=== PATIENT | female | born 1940 | race Caucasian/White ===

== ENCOUNTER 2020-01-11 15:08 | Outpatient (CLI) | payer MEDICARE, SELFPAY ==
--- NOTE | 2020-01-11 15:09 | MM_ITS ---
WS: [id number] LEFT DIGITAL MAMMOGRAPHY WITH CAD CLINICAL INFORMATION: HX OF BREAST CA HISTORY: Right mastectomy. COMPARISON: December 15, 2018 TECHNIQUE: 3 views of the left breast were obtained. FINDINGS: The left breast is composed of heterogeneous fibroglandular density tissue, which can limit the detec tion of small underlying mass lesions. Stable axillary tail lymph nodes. Lucent centered and punctate calcifications. No suspicious focal mass, asymmetry, calcifications, or architectural distortion. No evidence of arnol gnancy. MM/[place] [id number] IMPRESSION: BI-RADS: 2-Benign FOLLOW UP: 1 Year Follow-up Recommend return to annual diagnostic mammography.
[2020-01-11 15:39] LABS: Basophils % 0.3 %; Eosinophils # 0.2 10^3/uL (0.0-0.8); Eosinophils % 2.6 %; Hematocrit 42.9 % (37.0-47.0); Hemoglobin 13.8 g/dL (11.5-15.3); Lymphocytes # 2.3 10^3/uL (0.8-4.8); Lymphocytes % 37.2 %; Mean Corpuscular HGB Conc 32.2 g/dL (30.0-36.0); Mean Corpuscular Hemoglobin 30.3 pg (28.0-34.0); Mean Corpuscular Volume 94.1 fL (81-99); Mean Platelet Volume 10.6 fL (7.4-10.4); Monocytes # 0.4 10^3/uL (0.2-0.9); Monocytes % 7.1 %; Neutrophils # 3.2 10^3/uL (1.8-7.7); Neutrophils % 52.6 %; Nucleated Red Blood Cells % 0 %; Platelet Count 231 10^3/cmm (130-400); Red Blood Count 4.56 10^6/uL (4.1-5.3); Red Cell Distribution Width 12.2 % (12.1-15.1); White Blood Count 6.1 10^3/uL (4.0-10.0)
[2020-01-11 15:51] LABS: Alanine Aminotransferase 8 U/L (0-33); Albumin Level 3.8 g/dL (3.5-5.2); Alkaline Phosphatase 67 IU/L (35-105); Anion Gap 14.4 (5-19); Aspartate Amino Transferase 22 U/L (0-32); Blood Urea Nitrogen 13 mg/dL (8-23); Calcium 8.7 mg/dL (8.5-10.5); Carbon Dioxide 25 mmol/L (22-29); Chloride 102 mmol/L (98-107); Globulin 3.7 g/dL (1.3-4.6); Glucose 107 mg/dL (65-115); Osmolality Calculated 283 mOsm/kg (285-295); Potassium 3.4 mmol/L (3.5-5.1); Sodium 138 mmol/L (136-145); Total Bilirubin 0.5 mg/dL (0.15-1.2); Total Protein 7.5 g/dL (6.6-8.7)
[2020-01-11 19:13] LABS: Free T4 Free Thyroxine 1.11 ng/dL (0.82-1.77); Thyroid Stimulating Hormone 2.87 uIU/mL (0.27-4.20)
--- NOTE | 2020-01-13 09:22 | ONC FU_ITS ---
Dr. Lawson Patient Follow-Up Note Patient: MEE DENNIS Unit #: [id number]: 1940 Dicatated By: Parvez Lawson M.D.Date of Visit:Jan 11, 2020 Onc Med Follow-up/Prog Note Chief Complaint: Breast cancer. 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 The tumor was low-level ER positive and MA negative. It was positive for overexpression of HER-2/meghna (3+ by IHC). Her initial evaluation showed evidence of multifocal disease and she underwent total mastectomy with sentinel axillary lymph node biopsy in September of 2009. Pathology showed 2 areas of involvement, the larger in the upper outer quadrant measuring 2.8 cm in maximum diameter. A more medial lesion measured 1.3 cm. Two sentinel lymph nodes were negative. She was given adjuvant chemotherapy with 5 cycles of TCH, which she completed in January 2010. The chemotherapy was stopped at that point because of multiple toxicities. She continued Herceptin until September of 2010, at which point she had completed a full year of treatment. She started adjuvant with anastrozole in March of 2011. She stopped anastrozole in March 2016 after completing 5 years of treatment. Her general health has been excellent. She did have evidence of osteopenia on her baseline bone density, for which she has been on treatment with alendronate and calcium/vitamin D. She also has had some mild degenerative arthritis. She has no other medical illnesses. She is a nonsmoker. INTERIM HISTORY: At her scheduled follow-up visit in November 2018 her liver enzymes had become significantly elevated along with a mildly elevated total bilirubin level. Her energy was a little low and she was having a little nausea, but overall she was still feeling good. Her CT abdomen/pelvis on 12/31/2018 showed mild intrahepatic and extrahepatic bile duct dilatation, possibly related to prior cholecystectomy. There was no evidence of metastatic disease to the liver. Several low-attenuation lesions were noted within the spleen, metastatic disease not excluded. She had subsequently developed nausea/vomiting, and she was then referred to [facility] gastroenterology. I did not receive any records from them, but she apparently then underwent surgery for a common bile duct stone. She is seen for a followup visit. She says she is feeling great, but her indicates that she has had decline in her activity. She is doing some yard work and housework. ECOG score is 1. She has good appetite. Her weight is up about 5 lbs. She does not have fever, night sweats, or hot flashes. She has been having allergy related symptoms. She has no shortness of breath or cough. She has not been having chest pain or other cardiac symptoms. She has no GI or complaints. She says the pain in her right knee and leg is getting better. She has no other joint or bone pain. She does not have headache or focal neurologic symptoms. She does complain that she is very very dizzy. Her has noticed decline in her memory and cognitive function. Medications: Calcium + D 1 (600-200 mg - Units) Tablet Oral daily, Daily Multiple Vitamins 1 Tablet Oral daily, Levothyroxine Sodium 1 Tablet (of 25 mcg) Oral daily, Magnesium 1 (250 mg) Tablet Oral daily, Sertraline HCl 1 Tablet (of 25 mg) Oral at bedtime, Soothe XP 1 Drop(s) Solution Ophthalmic b.i.d., Xyzal 1 Tablet (of 5 mg) Oral daily Allergies: No Known Allergies. Review of Systems: Constitutional - She says she feels great, but her Romie that there has been decline in her activity. She is still doing yard work and housework. She has good appetite. Her weight is up 5 pounds. She does not have fever, night sweats, or hot flashes. ECOG score is 1, ENMT - She has been having allergy related symptoms including watery eyes and runny nose. She has sore throat. No mouth sores. No difficulty swallowing, Hematologic/Lymphatic - No abnormal bruising or bleeding, Respiratory - No shortness of breath. No cough. No pleuritic pain or hemoptysis, Cardiovascular - No angina pain. No palpitations, Gastrointestinal - No nausea or vomiting. No heartburn or acid reflux. No diarrhea or constipation. No blood in the stool or black stools, Genitourinary (F) - No dysuria or hematuria. No urinary frequency. No urgency or incontinence, Musculoskeletal - She has some pain in her right knee and leg, but she says it is getting better, Neurologic - No headache. She complains that she is very very dizzy. No numbness/paresthesias or other focal neurologic symptoms, Psychiatric - She has anxiety. No depression. No insomnia. Her has noticed changes in her memory and cognitive function. Vital Signs: Performed on Jan 11, 2020 16:19 Height - 65.50 in Weight - 190.6 lbs (HIGH) BSA - 1.95 sq.m BMI - 31.24 (HIGH) Temperature - 97.1 F (LOW) Pulse - 114 /min (HIGH) Respiration - 18 /min BP - 128/85 mm(hg) O2 Sat - 96 % Pain - 0 Physical Examination: Constitutional - She looks pretty good generally, Eyes - Sclerae nonicteric. Conjunctivae clear, ENMT - No lesions noted in the oral cavity, Hematologic/Lymphatic - No cervical or clavicular adenopathy, Respiratory - Lungs are clear with good air movement bilaterally, Cardiovascular - Heart rhythm is irregular with a mild tachycardia. There is a II/ systolic murmur. There is no gallop or rub noted, Breasts - There are no lesions noted in the right chest wall. The left breast shows no mass. There is no axillary adenopathy, Abdomen - Soft and non-tender. Liver and spleen are not enlarged. There is no abdominal mass or ascites noted and there is no inguinal adenopathy, Extremities - Mld lower extremity edema, worse on the right. She has good dorsalis pedis pulses bilaterally, Neurologic - There has been a noticeable decline in her cognitive function. There are no focal neurologic deficits noted. Lab/Imaging: Test performed on Jan 11, 2020 15:24 Sodium 138 mmol/L Potassium 3.4 mmol/L Chloride 102 mmol/L CO2 25 mmol/L Anion Gap 14.4 BUN 13 mg/dL Creatinine 0.8 mg/dL Cr Clearance (Est) 76.55 mL/min Glucose 107 mg/dL Calcium 8.7 mg/dL Protein, Total 7.5 g/dL Albumin 3.8 g/dL Globulin 3.7 g/dL Bilirubin, Total 0.5 mg/dL ALT (SGPT) 8 U/L AST (SGOT) 22 U/L Alkaline Phosphatase 67 IU/L WBC 6.1 10 3/uL RBC 4.56 10 6/uL HGB 13.8 g/dL HCT 42.9 % MCV 94.1 fL MCH 30.3 pg MCHC 32.2 g/dL RDW 12.2 % Platelet Count 231 10 3/cmm MPV 10.6 fL Neutrophils 3.2 10 3/uL Lymphocytes 2.3 10 3/uL Monocytes 0.4 10 3/uL Eosinophils 0.2 10 3/uL Basophils 0.0 10 3/uL Neutrophil % 52.6 % Lymphocyte % 37.2 % Monocyte % 7.1 % Eosinophil % 2.6 % Basophils % 0.3 % NRBC % 0 % Her EKG today shows atrial fibrillation with rapid ventricular response. Impression: 1. 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 2. She underwent right total mastectomy with sentinel axillary lymph node biopsy in September 2009. 3. She was given adjuvant chemotherapy with 5 cycles of TCH and a full year of Herceptin. 4. She was given adjuvant hormonal therapy with anastrozole 1 mg daily from March 2011 thru March 2016. Her other medical illnesses include: 5. Osteopenia. 6. Mild degenerative arthritis. She continued on observation/expectant management following completion of adjuvant hormonal therapy. As of her follow-up visit in November 2018 her liver enzymes had become significantly elevated along with a slightly elevated total bilirubin. Her CT evidence/pelvis showed no evidence of metastatic involvement in the liver. There was mild dilatation of intra-and extrahepatic bile ducts, and she apparently then underwent surgery for removal of a common bile duct stone. Her liver enzymes subsequently returned to normal. In January 2019 she underwent laparoscopic converted to open right femoral hernia repair with plug. Since her last visit there has been some decline in her performance status and in her memory/cognitive function. She also complains of dizziness. It appears likely that she is developing dementia. She also has developed atrial fibrillation with a mildly elevated ventricular rate. She does not appear to be symptomatic with it. Thus far there has been no evidence of recurrence of her breast cancer. Plan: She we will remain on observation/expectant management for the breast cancer. I will check thyroid studies today, but in the meantime she is advised to stop levothyroxine. She will start metoprolol 25 mg bid. She will continue sertraline but with the dose/schedule changed to 50 mg daily. I will see her again in one year. In the meantime, she wishes to establish primary care with Dr. Leo, and I try and arrange an appointment for her. Signed By: Parvez Lawson M.D. <<Signature on File>>
== END 2020-01-11 15:09 | disposition home or self-care (01) ==
LOC: RADSHAW 15:08
PROVIDERS: PCP Nurse Practitioner; Visit Provider Internal Medicine Medical Oncology
DX: Z08 Encounter for follow-up examination after completed treatment for malignant neoplasm (principal); Z85.3 Personal history of malignant neoplasm of breast; M19.90 Unspecified osteoarthritis, unspecified site; R41.3 Other amnesia; F09 Unspecified mental disorder due to known physiological condition; R42 Dizziness and giddiness; M85.80 Other specified disorders of bone density and structure, unspecified site; Z90.11 Acquired absence of right breast and nipple; Z92.23 Personal history of estrogen therapy; Z92.21 Personal history of antineoplastic chemotherapy
CPT/HCPCS: 77065; 80053; 84439; 84443; 85025; 99214

== ENCOUNTER 2021-01-14 08:50 | Outpatient (CLI) | payer MEDICARE, SELFPAY ==
[2021-01-14 10:06] LABS: Basophils % 0.4 %; Eosinophils # 0.2 10^3/uL (0.0-0.8); Eosinophils % 4.6 %; Hematocrit 43.2 % (37.0-47.0); Hemoglobin 13.5 g/dL (11.5-15.3); Lymphocytes # 1.2 10^3/uL (0.8-4.8); Lymphocytes % 25.9 %; Mean Corpuscular HGB Conc 31.3 g/dL (30.0-36.0); Mean Corpuscular Hemoglobin 30.6 pg (28.0-34.0); Mean Platelet Volume 11.1 fL (7.4-10.4); Monocytes # 0.4 10^3/uL (0.2-0.9); Monocytes % 9.3 %; Neutrophils # 2.68 10^3/uL (1.8-7.7); Neutrophils % 59.4 %; Nucleated Red Blood Cells % 0 %; Platelet Count 199 10^3/cmm (130-400); Red Blood Count 4.41 10^6/uL (4.1-5.3); White Blood Count 4.5 10^3/uL (4.0-10.0)
[2021-01-14 10:35] LABS: Ammonia 15 umol/L (11-51)
[2021-01-14 11:00] LABS: Alanine Aminotransferase 6 U/L (0-33); Albumin Level 3.4 g/dL (3.5-5.2); Alkaline Phosphatase 59 IU/L (35-105); Anion Gap 10.2 (5-19); Aspartate Amino Transferase 19 U/L (0-32); Blood Urea Nitrogen 21 mg/dL (8-23); Calcium 8.3 mg/dL (8.5-10.5); Carbon Dioxide 30 mmol/L (22-29); Chloride 107 mmol/L (98-107); Glucose 97 mg/dL (65-115); Osmolality Calculated 299 mOsm/kg (285-295); Potassium 4.2 mmol/L (3.5-5.1); Sodium 143 mmol/L (136-145); Thyroid Stimulating Hormone 2.76 uIU/mL (0.27-4.20); Total Bilirubin 0.3 mg/dL (0.15-1.2); Total Protein 6.4 g/dL (6.6-8.7); Vitamin B12 762 pg/mL (232-1245)
--- NOTE | 2021-01-21 10:44 | ONC FU_ITS ---
Dr. Lawson Patient Follow-Up Note Patient: Candace Liu Unit #: [id number]: [id number] Dicatated By: Parvez Lawson M.D.Date of Visit:Jan 14, 2021 Onc Med Follow-up/Prog Note Chief Complaint: Breast cancer. 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 The tumor was low-level ER positive and CO negative. It was positive for overexpression of HER-2/meghna (3+ by IHC). Her initial evaluation showed evidence of multifocal disease and she underwent total mastectomy with sentinel axillary lymph node biopsy in September of 2009. Pathology showed 2 areas of involvement, the larger in the upper outer quadrant measuring 2.8 cm in maximum diameter. A more medial lesion measured 1.3 cm. Two sentinel lymph nodes were negative. She was given adjuvant chemotherapy with 5 cycles of TCH, which she completed in January 2010. The chemotherapy was stopped at that point because of multiple toxicities. She continued Herceptin until September of 2010, at which point she had completed a full year of treatment. She started adjuvant with anastrozole in March of 2011. She stopped anastrozole in March 2016 after completing 5 years of treatment. At her scheduled follow-up visit in November 2018 her liver enzymes had become significantly elevated along with a mildly elevated total bilirubin level. Her energy was a little low and she was having a little nausea, but overall she was still feeling good. Her CT abdomen/pelvis on 12/31/2018 showed mild intrahepatic and extrahepatic bile duct dilatation, possibly related to prior cholecystectomy. There was no evidence of metastatic disease to the liver. Several low-attenuation lesions were noted within the spleen, metastatic disease not excluded. She had subsequently developed nausea/vomiting, and she was then referred to [facility] gastroenterology. I did not receive any records from them, but she apparently then underwent surgery for a common bile duct stone. Her general health had otherwise been excellent. She did have evidence of osteopenia on her baseline bone density, for which she began treatment with alendronate and calcium/vitamin D. She also has had some mild degenerative arthritis. She is a non-smoker. She is seen for a followup visit. During the past 1 to 2 years she has had a decline in her cognitive function. Her indicates that she actually has more problems now with intermittent confusion as opposed to memory loss. She is still able to do light work around the house. Her ECOG score is 1. Her appetite is not particularly good, but she is eating. Her weight is down about 3 pounds. She does not have fever or night sweats. She has no shortness of breath, cough, or chest pain. She has complained of nausea, though not as much lately. Bowel and bladder function have been okay. She sometimes has pain in her right knee. She has no other joint or bone pain. She does not complain of headache. She sometimes has dizziness. She has no numbness/paresthesia or other focal neurologic symptoms. Medications: Calcium + D 1 (600-200 mg - Units) Tablet Oral daily, Daily Multiple Vitamins 1 Tablet Oral daily, Levothyroxine Sodium 1 Tablet (of 25 mcg) Oral daily, Magnesium 1 (250 mg) Tablet Oral daily, Sertraline HCl 1 Tablet (of 25 mg) Oral at bedtime, Soothe XP 1 Drop(s) Solution Ophthalmic b.i.d., Xyzal 1 Tablet (of 5 mg) Oral daily Allergies: No Known Allergies. Vital Signs: Performed on Jan 14, 2021 09:57 Height - 65.50 in Weight - 187.4 lbs (LOW) BSA - 1.93 sq.m BMI - 30.71 (HIGH) Temperature - 97.0 F (LOW) Pulse - 76 /min Respiration - 18 /min BP - 120/68 mm(hg) O2 Sat - 97 % Pain - 0 Fatigue - 0 Physical Examination: Constitutional - She looks pretty good generally, Eyes - Sclerae nonicteric. Conjunctivae clear, ENMT - No lesions noted in the oral cavity, Hematologic/Lymphatic - No cervical or clavicular adenopathy, Respiratory - Lungs are clear with good air movement bilaterally, Cardiovascular - Heart rhythm is irregular. There is a II/ systolic murmur. There is no gallop or rub noted, Breasts - There are no lesions noted in the right chest wall. The left breast shows no mass. There is no axillary adenopathy, Abdomen - Soft. Liver and spleen are not enlarged. There is no abdominal mass or ascites noted and there is no inguinal adenopathy, Extremities - Mld edema, Neurologic - There are no focal neurologic deficits noted. Lab/Imaging: Test performed on Jan 14, 2021 09:51 Ammonia 15 umol/L Sodium 143 mmol/L TSH 2.76 uIU/mL Vitamin B12 762 pg/mL Potassium 4.2 mmol/L Chloride 107 mmol/L CO2 30 mmol/L Anion Gap 10.2 BUN 21 mg/dL Creatinine 0.9 mg/dL Cr Clearance (Est) 65.7900 mL/min Glucose 97 mg/dL Osmolality - Calculated 299 mOsm/kg Calcium 8.3 mg/dL Protein, Total 6.4 g/dL Albumin 3.4 g/dL Globulin 3.0 g/dL Bilirubin, Total 0.3 mg/dL ALT (SGPT) 6 U/L AST (SGOT) 19 U/L Alkaline Phosphatase 59 IU/L WBC 4.5 10 3/uL RBC 4.41 10 6/uL HGB 13.5 g/dL HCT 43.2 % MCV 98.0 fL MCH 30.6 pg MCHC 31.3 g/dL RDW 13.0 % Platelet Count 199 10 3/cmm MPV 11.1 fL Neutrophils 2.68 10 3/uL Lymphocytes 1.2 10 3/uL Monocytes 0.4 10 3/uL Eosinophils 0.2 10 3/uL Basophils 0.0 10 3/uL Neutrophil % 59.4 % Lymphocyte % 25.9 % Monocyte % 9.3 % Eosinophil % 4.6 % Basophils % 0.4 % NRBC % 0 % Problem List: 1. Grade 3 infiltrating ductal carcinoma the right breast, stage IIA, ER low-level positive and CO negative and HER-2/meghna positive. She underwent right total mastectomy with sentinel axillary lymph node biopsy in September 2009. 2. Atrial fibrillation. 3. Osteopenia. 4. Mild degenerative arthritis. 5. Iimpairment in cognitive function. Problems Addressed with this Encounter and Plan: 1. 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 She underwent right total mastectomy with sentinel axillary lymph node biopsy in September 2009. She was given adjuvant chemotherapy with 5 cycles of TCH and a full year of Herceptin. She was given adjuvant hormonal therapy with anastrozole 1 mg daily from March 2011 thru March 2016. She continued on observation/expectant management following completion of adjuvant hormonal therapy. As of her follow-up visit in November 2018 her liver enzymes had become significantly elevated along with a slightly elevated total bilirubin. Her CT evidence/pelvis showed no evidence of metastatic involvement in the liver. There was mild dilatation of intra-and extrahepatic bile ducts, and she apparently then underwent surgery for removal of a common bile duct stone. Her liver enzymes subsequently returned to normal. During the past 1 to 2 years there has been some decline in her cognitive function. Her overall clinical status is otherwise remained stable. Thus far during follow-up there has been no evidence of recurrence of the breast cancer. She will be scheduled for her unilateral left diagnostic surveillance mammogram, which is overdue. I will see her again in 6 months. 2. She has cognitive impairment with some associated anxiety and confusion. After discussion with her , I will try increasing sertraline to 75 mg daily. Signed By: Parvez Lawson M.D. <<Signature on File>>
== END 2021-01-14 08:51 | disposition home or self-care (01) ==
PROVIDERS: PCP Family Medicine; Visit Provider Internal Medicine Medical Oncology
DX: Z08 Encounter for follow-up examination after completed treatment for malignant neoplasm (principal); Z85.3 Personal history of malignant neoplasm of breast; I48.20 Chronic atrial fibrillation, unspecified; M85.80 Other specified disorders of bone density and structure, unspecified site; M19.90 Unspecified osteoarthritis, unspecified site; G31.84 Mild cognitive impairment of uncertain or unknown etiology; Z79.890 Hormone replacement therapy; Z79.899 Other long term (current) drug therapy; Z90.11 Acquired absence of right breast and nipple
CPT/HCPCS: 80053; 82140; 82607; 84443; 85025; 99214

== ENCOUNTER 2021-01-25 12:40 | Outpatient (CLI) | payer MEDICARE, SELFPAY ==
--- NOTE | 2021-01-25 12:50 | MM_ITS ---
WS: [id number] DIAGNOSTIC LEFT DIGITAL MAMMOGRAM WITH CAD HISTORY: HX OF BREAST Ca; rt MAST COMPARISON: 01/11/2020 and 12/15/2018 Technique: CC, MLO and ML views. Breast composition: The breasts are heterogeneously dense, which may obscure small masses. Calcifica tions and asymmetries are stable. No distortion. MM/[place] [id number] IMPRESSION: BI-RADS: 2-Benign FOLLOW UP: 1 Year Follow-up
== END 2021-01-25 12:41 | disposition home or self-care (01) ==
LOC: RADSHAW 12:47
PROVIDERS: PCP Family Medicine; Visit Provider Internal Medicine Medical Oncology
DX: Z85.3 Personal history of malignant neoplasm of breast (principal); Z90.11 Acquired absence of right breast and nipple
CPT/HCPCS: 77065

== ENCOUNTER 2021-03-18 20:10 | Emergency (ER) | payer MEDICARE, SELFPAY ==
--- NOTE | 2021-03-18 20:11 | ECG_ITS ---
[facility] Test Date: 2021-03-18 Pat Name: Candace Liu Department: Room: Gender: Female [employer] [place]: : 1940 Requested By: Chandni Mitchell Order Number: [id number] Wallace MD: Arnold Blackwood M.D. Measurements Intervals [place] Rate: 80 P: SC: QRS: -58 QRSD: 118 T: 31 QT: 376 QTc: 436 Interpretive Statements ATRIAL FIBRILLATION LEFT ANTERIOR FASCICULAR BLOCK [QRS AXIS <= -45, QR IN I, RS IN II] No previous ECG available for comparison Electronically Signed On 03-19-2021 17:09:22 CDT by Arnold Blackwood M.D. [id number]
[2021-03-18 20:59] VITALS: BP 148/72; PULSE 97; RESP 18; TEMP 36.7; O2SAT 97
[2021-03-18 23:17] LABS: Basophils % 0.2 %; Eosinophils # 0.1 10^3/uL (0.0-0.8); Eosinophils % 0.7 %; Hematocrit 47.7 % (37.0-47.0); Hemoglobin 14.1 g/dL (11.5-15.3); Lymphocytes # 1.3 10^3/uL (0.8-4.8); Mean Corpuscular HGB Conc 29.6 g/dL (30.0-36.0); Mean Corpuscular Hemoglobin 30.8 pg (28.0-34.0); Mean Corpuscular Volume 104.1 fl (81-99); Mean Platelet Volume 11.3 fL (7.4-10.4); Monocytes # 0.6 10^3/uL (0.2-0.9); Monocytes % 7.4 %; Neutrophils # 6.47 10^3/uL (1.8-7.7); Neutrophils % 76.5 %; Nucleated Red Blood Cells % 0 %; Platelet Count 186 10^3/cmm (130-400); Red Blood Count 4.58 10^6/uL (4.1-5.3); Red Cell Distribution Width 12.9 % (12.1-15.1); White Blood Count 8.5 10^3/uL (4.0-10.0)
[2021-03-18 23:34] LABS: Alanine Aminotransferase < 5 U/L (0-33); Albumin Level 3.5 g/dL (3.5-5.2); Alkaline Phosphatase 62 IU/L (35-105); Aspartate Amino Transferase 16 U/L (0-32); Blood Urea Nitrogen 15 mg/dL (8-23); Calcium 9.1 mg/dL (8.5-10.5); Carbon Dioxide 21 mmol/L (22-29); Chloride 105 mmol/L (98-107); Globulin 3.4 g/dL (1.3-4.6); Glucose 111 mg/dL (65-115); Osmolality Calculated 290 mOsm/kg (285-295); Sodium 139 mmol/L (136-145); Total Bilirubin 1.2 mg/dL (0.15-1.2); Total Protein 6.9 g/dL (6.6-8.7)
[2021-03-18 23:39] LABS: Acetaminophen < 5.0 ug/mL (10-30); Alcohol Level < 10 mg/dL (0-10); Salicylate < 0.3 mg/dL (3-10)
[2021-03-18 23:40] LABS: Anion Gap 16.3 (5-19); Potassium 3.3 mmol/L (3.5-5.1)
[2021-03-18 23:44] LABS: SARS Covid-2 Antigen Negative (Negative)
[2021-03-18 23:57] VITALS: BP 142/72; PULSE 87; RESP 16; O2SAT 96
[2021-03-19] VITALS: BP 142/88; PULSE 68; RESP 16; O2SAT 96
--- NOTE | 2021-03-19 00:26 | ED_ITS ---
Documented by User: Chandni Mitchell MD 03/19/21 00:31 HPI - Psych General: Chief Complaint: Psychiatric Symptoms Stated Complaint: 96 hour hold Time Seen by Provider: 03/18/21 22:37 Source: patient and police Mode of arrival: ambulatory Limitations: altered mental status History of Present Illness: HPI Narrative: 81-year-old female has a history of possible dementia that spent in by police and has been under 96-hour hold. States she has been wandering frequently and wanted to her nephew's house the other day. She also does not believe her who he is and believes that he is someone else and has made threats to kill him. Patient here is able to tell me her name but is disoriented to time. She has had no recent illnesses no fevers no headache no strokelike symptoms. Associated symptoms: Reports homicidal ideation; Deny depression Review of Systems Const: Denies: fever(s), chills, body aches or change in appetite Eyes: Denies: blurry vision or eye discomfort ENMT: Denies: throat pain or dental pain Card: Denies: chest pain Resp: Denies: dyspnea GI: Denies: abdominal pain, nausea, vomiting or diarrhea : Denies: dysuria Musc: Denies: neck pain or back pain Skin/Breast: Denies: rash Neuro: Denies: headache(s) Psych: Reports: homicidal ideation; Denies: depression Mikhail/Lymph: Denies: easy bruising All/Imm: Denies: urticaria Physical Exam Const: COMMON NORMALS: no acute distress and healthy appearing; negative for patient oriented x3 GENERAL APPEARANCE: anxious HENMT: COMMON NORMALS: normocephalic and atraumatic HEAD & SCALP: normocephalic and atraumatic Eye: COMMON NORMALS: Equal, round and reactive pupils present and EOMs intact bilaterally PUPIL: Yes Equal, round and reactive pupils present Neck/C-Spine: COMMON NORMALS: full ROM and supple Chest: COMMONS NORMALS: normal inspection of the chest and normal palpation of entire chest wall Resp: COMMON NORMALS: normal respiratory effort, No retractions, No use of accessory muscles and clear to auscultation bilaterally AUSCULTATION: clear to auscultation bilaterally Cardio: COMMON NORMALS: regular rate, regular rhythm and No murmurs present (Cardio) RATE: regular rate RHYTHM: regular rhythm GI: COMMON NORMALS: Normal to inspection, nondistended, normoactive bowel sounds present, Soft to palpation, non-tender and no masses PALPATION: Yes Soft to palpation Extremity: COMMON NORMALS: normal to inspection and full ROM Neuro: COMMON NORMALS: moves all extremities and no focal motor deficits; negative for patient oriented x3 Psych: COMMON NORMALS: mental status grossly normal, Normal thought process present and cooperative THOUGHT PROCESS: Normal thought process present Skin: COMMON NORMALS: no rashes or lesions noted and no wounds GENERAL SKIN EXAM: no rashes or lesions noted Course Vital Signs: Vital signs: Vital Signs Temperature 98.1 F 03/18/21 20:59 Pulse Rate 74 03/19/21 03:45 Respiratory Rate 16 03/19/21 03:48 Blood Pressure 164/80 03/19/21 03:45 Pulse Oximetry 96 03/19/21 03:45 MDM - Psych Lab Data: Labs: Lab Results 03/18/21 03/18/21 03/18/21 Range/Units 23:11 23:11 23:11 WBC 8.5 (4.0-10.0) 10^3/ uL RBC 4.58 (4.1-5.3) 10^6/u L Hgb 14.1 (11.5-15.3) g/dL Hct 47.7 H (37.0-47.0) % MCV 104.1 H (81-99) fl MCH 30.8 (28.0-34.0) pg MCHC 29.6 L (30.0-36.0) g/dL RDW 12.9 (12.1-15.1) % Plt Count 186 (130-400) 10^3/c mm MPV 11.3 H (7.4-10.4) fL Neut % (Auto) 76.5 % Lymph % (Auto) 15.0 % [place] % (Auto) 7.4 % Eos % (Auto) 0.7 % Baso % (Auto) 0.2 % Neut # (Auto) 6.47 (1.8-7.7) 10^3/u L Lymph # (Auto) 1.3 (0.8-4.8) 10^3/u L [place] # (Auto) 0.6 (0.2-0.9) 10^3/u L Eos # (Auto) 0.1 (0.0-0.8) 10^3/u L Baso # (Auto) 0.0 (0.0-0.1) 10^3/u L Nucleated RBC % (a uto) 0 % Nucleated RBCs # 0.0 /100WBC Sodium 139 (136-145) mmol/L Potassium 3.3 L (3.5-5.1) mmol/L Chloride 105 (98-107) mmol/L Carbon Dioxide 21 L (22-29) mmol/L Anion Gap 16.3 (5-19) BUN 15 (8-23) mg/dL Creatinine 0.9 (0.5-0.9) mg/dL GFR Calculation Not Reportable Glucose 111 (65-115) mg/dL Calculated Osmolal ity 290 (285-295) mOsm/k g Calcium 9.1 (8.5-10.5) mg/dL Total Bilirubin 1.2 (0.15-1.2) mg/dL AST 16 (0-32) U/L ALT < 5 (0-33) U/L Alkaline Phosphata se 62 (35-105) IU/L Total Protein 6.9 (6.6-8.7) g/dL Albumin 3.5 (3.5-5.2) g/dL Globulin 3.4 (1.3-4.6) g/dL Urine Color (Yellow) Urine Appearance (CLEAR) Urine pH (5-7) Ur Specific Gravit y (1.005-1.030) Urine Protein (Negative) Urine Glucose (UA) (Normal) Urine Ketones (Negative) Urine Blood (Negative) Urine Nitrate (Negative) Urine Bilirubin (Negative) Urine Urobilinogen (Negative) mg/dL Ur Leukocyte Arely ase (Negative) Urine RBC (0-2) /hpf Urine WBC (0-5) /hpf Ur Squamous Epith Cells (0-5) /hpf Amorphous Sediment Urine Bacteria (NONE) /hpf Hyaline Casts /lpf Urine Mucus /hpf Salicylates < 0.3 L (3-10) mg/dL Urine Opiates Scre en (Negative) ng/mL Acetaminophen < 5.0 L (10-30) ug/mL Ur Barbiturates Sc reen (Negative) ng/mL Ur Phencyclidine S crn (Negative) ng/mL Ur Amphetamines Sc reen (Negative) ng/mL U Benzodiazepines Scrn (Negative) ng/mL Urine Cocaine Scre en (Negative) ng/mL U Marijuana (THC) Screen (Negative) ng/mL Ethyl Alcohol < 10 (0-10) mg/dL SARS-CoV-2 Ag (Rap id) Negative (Negative) 03/19/21 03/19/21 Range/Units 04:30 04:30 WBC (4.0-10.0) 10^3/ uL RBC (4.1-5.3) 10^6/u L Hgb (11.5-15.3) g/dL Hct (37.0-47.0) % MCV (81-99) fl MCH (28.0-34.0) pg MCHC (30.0-36.0) g/dL RDW (12.1-15.1) % Plt Count (130-400) 10^3/c mm MPV (7.4-10.4) fL Neut % (Auto) % Lymph % (Auto) % [place] % (Auto) % Eos % (Auto) % Baso % (Auto) % Neut # (Auto) (1.8-7.7) 10^3/u L Lymph # (Auto) (0.8-4.8) 10^3/u L [place] # (Auto) (0.2-0.9) 10^3/u L Eos # (Auto) (0.0-0.8) 10^3/u L Baso # (Auto) (0.0-0.1) 10^3/u L Nucleated RBC % (a uto) % Nucleated RBCs # /100WBC Sodium (136-145) mmol/L Potassium (3.5-5.1) mmol/L Chloride (98-107) mmol/L Carbon Dioxide (22-29) mmol/L Anion Gap (5-19) BUN (8-23) mg/dL Creatinine (0.5-0.9) mg/dL GFR Calculation Glucose (65-115) mg/dL Calculated Osmolal ity (285-295) mOsm/k g Calcium (8.5-10.5) mg/dL Total Bilirubin (0.15-1.2) mg/dL AST (0-32) U/L ALT (0-33) U/L Alkaline Phosphata se (35-105) IU/L Total Protein (6.6-8.7) g/dL Albumin (3.5-5.2) g/dL Globulin (1.3-4.6) g/dL Urine Color Crystal (Yellow) Urine Appearance Sl hazy (CLEAR) Urine pH 5 (5-7) Ur Specific Gravit y 1.025 (1.005-1.030) Urine Protein Trace (Negative) Urine Glucose (UA) Norm (Normal) Urine Ketones 1+ H (Negative) Urine Blood Neg (Negative) Urine Nitrate Negative (Negative) Urine Bilirubin 1+ H (Negative) Urine Urobilinogen 4 H (Negative) mg/dL Ur Leukocyte Arely ase Trace H (Negative) Urine RBC 5-10 H (0-2) /hpf Urine WBC 5-10 H (0-5) /hpf Ur Squamous Epith Cells 10-15 H (0-5) /hpf Amorphous Sediment Not Reportable Urine Bacteria 1+ H (NONE) /hpf Hyaline Casts 0-4 H /lpf Urine Mucus 1+ /hpf Salicylates (3-10) mg/dL Urine Opiates Scre en Negative (Negative) ng/mL Acetaminophen (10-30) ug/mL Ur Barbiturates Sc reen Negative (Negative) ng/mL Ur Phencyclidine S crn Negative (Negative) ng/mL Ur Amphetamines Sc reen Negative (Negative) ng/mL U Benzodiazepines Scrn Negative (Negative) ng/mL Urine Cocaine Scre en Negative (Negative) ng/mL U Marijuana (THC) Screen Negative (Negative) ng/mL Ethyl Alcohol (0-10) mg/dL SARS-CoV-2 Ag (Rap id) (Negative) EKG Data^: EKG 1: Attestation: I personally reviewed and interpreted this EKG as follows: EKG interpretation date: 03/18/21 EKG interpretation time: 23:59 Interpretation: afib hr [address] or t wave abnormalities qrs 118 qtc 413 Discharge Plan Discharge Patient Disposition: Xfer Short-Term Hosp Clinical Impression: Acute psychosis Condition: Stable Referrals: Jeovanny Leo DO [Primary Care Provider] - Sign Out Sign Out Data: Patient Sign Out occurred on 03/19/21 at 06:12. Patient's care was discussed, and care was transferred from to Zeus L Horstman, DO. Coding Level of Care Code ED Outpatient Phlebotomist for Chg Fwd Exam Comprehensive Documented by User: Zeus Madden DO 03/19/21 11:50 HPI - Psych General: Chief Complaint: Psychiatric Symptoms Stated Complaint: 96 hour hold Time Seen by Provider: 03/18/21 22:37 Course Vital Signs: Vital signs: Vital Signs Temperature 98.1 F 03/18/21 20:59 Pulse Rate 74 03/19/21 03:45 Respiratory Rate 16 03/19/21 03:48 Blood Pressure 164/80 03/19/21 03:45 Pulse Oximetry 96 03/19/21 03:45 MDM - Psych MDM Narrative: Medical decision making narrative: Assumed a change of shift. We are making her inquiries to find bed placement for geriatric psych since she did not have that service available at our hospital. Cussed with nurse practitioner at [place]. Dr. Linton will accept on transfer transportation arrangements being finalized. Lab Data: Labs: Lab Results 03/18/21 03/18/21 03/18/21 Range/Units 23:11 23:11 23:11 WBC 8.5 (4.0-10.0) 10^3/ uL RBC 4.58 (4.1-5.3) 10^6/u L Hgb 14.1 (11.5-15.3) g/dL Hct 47.7 H (37.0-47.0) % MCV 104.1 H (81-99) fl MCH 30.8 (28.0-34.0) pg MCHC 29.6 L (30.0-36.0) g/dL RDW 12.9 (12.1-15.1) % Plt Count 186 (130-400) 10^3/c mm MPV 11.3 H (7.4-10.4) fL Neut % (Auto) 76.5 % Lymph % (Auto) 15.0 % [place] % (Auto) 7.4 % Eos % (Auto) 0.7 % Baso % (Auto) 0.2 % Neut # (Auto) 6.47 (1.8-7.7) 10^3/u L Lymph # (Auto) 1.3 (0.8-4.8) 10^3/u L [place] # (Auto) 0.6 (0.2-0.9) 10^3/u L Eos # (Auto) 0.1 (0.0-0.8) 10^3/u L Baso # (Auto) 0.0 (0.0-0.1) 10^3/u L Nucleated RBC % (a uto) 0 % Nucleated RBCs # 0.0 /100WBC Sodium 139 (136-145) mmol/L Potassium 3.3 L (3.5-5.1) mmol/L Chloride 105 (98-107) mmol/L Carbon Dioxide 21 L (22-29) mmol/L Anion Gap 16.3 (5-19) BUN 15 (8-23) mg/dL Creatinine 0.9 (0.5-0.9) mg/dL GFR Calculation Not Reportable Glucose 111 (65-115) mg/dL Calculated Osmolal ity 290 (285-295) mOsm/k g Calcium 9.1 (8.5-10.5) mg/dL Total Bilirubin 1.2 (0.15-1.2) mg/dL AST 16 (0-32) U/L ALT < 5 (0-33) U/L Alkaline Phosphata se 62 (35-105) IU/L Total Protein 6.9 (6.6-8.7) g/dL Albumin 3.5 (3.5-5.2) g/dL Globulin 3.4 (1.3-4.6) g/dL Urine Color (Yellow) Urine Appearance (CLEAR) Urine pH (5-7) Ur Specific Gravit y (1.005-1.030) Urine Protein (Negative) Urine Glucose (UA) (Normal) Urine Ketones (Negative) Urine Blood (Negative) Urine Nitrate (Negative) Urine Bilirubin (Negative) Urine Urobilinogen (Negative) mg/dL Ur Leukocyte Arely ase (Negative) Urine RBC (0-2) /hpf Urine WBC (0-5) /hpf Ur Squamous Epith Cells (0-5) /hpf Amorphous Sediment Urine Bacteria (NONE) /hpf Hyaline Casts /lpf Urine Mucus /hpf Salicylates < 0.3 L (3-10) mg/dL Urine Opiates Scre en (Negative) ng/mL Acetaminophen < 5.0 L (10-30) ug/mL Ur Barbiturates Sc reen (Negative) ng/mL Ur Phencyclidine S crn (Negative) ng/mL Ur Amphetamines Sc reen (Negative) ng/mL U Benzodiazepines Scrn (Negative) ng/mL Urine Cocaine Scre en (Negative) ng/mL U Marijuana (THC) Screen (Negative) ng/mL Ethyl Alcohol < 10 (0-10) mg/dL SARS-CoV-2 Ag (Rap id) Negative (Negative) 03/19/21 03/19/21 Range/Units 04:30 04:30 WBC (4.0-10.0) 10^3/ uL RBC (4.1-5.3) 10^6/u L Hgb (11.5-15.3) g/dL Hct (37.0-47.0) % MCV (81-99) fl MCH (28.0-34.0) pg MCHC (30.0-36.0) g/dL RDW (12.1-15.1) % Plt Count (130-400) 10^3/c mm MPV (7.4-10.4) fL Neut % (Auto) % Lymph % (Auto) % [place] % (Auto) % Eos % (Auto) % Baso % (Auto) % Neut # (Auto) (1.8-7.7) 10^3/u L Lymph # (Auto) (0.8-4.8) 10^3/u L [place] # (Auto) (0.2-0.9) 10^3/u L Eos # (Auto) (0.0-0.8) 10^3/u L Baso # (Auto) (0.0-0.1) 10^3/u L Nucleated RBC % (a uto) % Nucleated RBCs # /100WBC Sodium (136-145) mmol/L Potassium (3.5-5.1) mmol/L Chloride (98-107) mmol/L Carbon Dioxide (22-29) mmol/L Anion Gap (5-19) BUN (8-23) mg/dL Creatinine (0.5-0.9) mg/dL GFR Calculation Glucose (65-115) mg/dL Calculated Osmolal ity (285-295) mOsm/k g Calcium (8.5-10.5) mg/dL Total Bilirubin (0.15-1.2) mg/dL AST (0-32) U/L ALT (0-33) U/L Alkaline Phosphata se (35-105) IU/L Total Protein (6.6-8.7) g/dL Albumin (3.5-5.2) g/dL Globulin (1.3-4.6) g/dL Urine Color Crystal (Yellow) Urine Appearance Sl hazy (CLEAR) Urine pH 5 (5-7) Ur Specific Gravit y 1.025 (1.005-1.030) Urine Protein Trace (Negative) Urine Glucose (UA) Norm (Normal) Urine Ketones 1+ H (Negative) Urine Blood Neg (Negative) Urine Nitrate Negative (Negative) Urine Bilirubin 1+ H (Negative) Urine Urobilinogen 4 H (Negative) mg/dL Ur Leukocyte Arely ase Trace H (Negative) Urine RBC 5-10 H (0-2) /hpf Urine WBC 5-10 H (0-5) /hpf Ur Squamous Epith Cells 10-15 H (0-5) /hpf Amorphous Sediment Not Reportable Urine Bacteria 1+ H (NONE) /hpf Hyaline Casts 0-4 H /lpf Urine Mucus 1+ /hpf Salicylates (3-10) mg/dL Urine Opiates Scre en Negative (Negative) ng/mL Acetaminophen (10-30) ug/mL Ur Barbiturates Sc reen Negative (Negative) ng/mL Ur Phencyclidine S crn Negative (Negative) ng/mL Ur Amphetamines Sc reen Negative (Negative) ng/mL U Benzodiazepines Scrn Negative (Negative) ng/mL Urine Cocaine Scre en Negative (Negative) ng/mL U Marijuana (THC) Screen Negative (Negative) ng/mL Ethyl Alcohol (0-10) mg/dL SARS-CoV-2 Ag (Rap id) (Negative) Discharge Plan Discharge Patient Disposition: Xfer Short-Term Hosp Clinical Impression: Acute psychosis Condition: Stable Referrals: Jeovanny Leo DO [Primary Care Provider] - Sign Out Sign Out Data: Patient Sign Out occurred on 03/19/21 at 06:12. Patient's care was discussed, and care was transferred from to Zeus Madden DO. Coding Level of Care Code ED Outpatient Phlebotomist for Chg Fwd Exam Comprehensive
--- NOTE | 2021-03-19 00:47 | XRR_ITS ---
PROCEDURE INFORMATION: Exam: XR Chest Exam date and time: 03/19/2021 12:47 AM Age: 81 years old Clinical indication: Other: Medical clearance TECHNIQUE: Imaging protocol: XR of the chest. Views: 1 view. COMPARISON: CT abdomen pelvis w con* [id number] 12/31/2018 9:45 AM FINDINGS: Lungs: Streaky opacity in the right mid lung which could be secondary to atelectasis or pneumonia. Pleural spaces: Unremarkable. No pleural effusion. No pneumothorax. Heart/Mediastinum: There is mild cardiomegaly. Bones/joints: Unremarkable. XR/XR chest 1V portable [id number] IMPRESSION: 1. Mild cardiomegaly. 2. Streaky opacity in the right mid lung which could be secondary to atelectasis or pneumonia.
[2021-03-19 02:00] VITALS: BP 168/64; PULSE 72; RESP 16; O2SAT 96
[2021-03-19 03:45] VITALS: BP 164/80; PULSE 74; RESP 18; O2SAT 96
[2021-03-19 03:48] VITALS: RESP 16
--- NOTE | 2021-03-19 03:48 | PC.NURSE ---
pt refuses all vitals. Demetrio PSA present while this nurse tried multiple times to obtain vital signs.
[2021-03-19] MEDS: LORazepam 2 mg/mL INJ 1 mL 1 MG IM (04:30)
[2021-03-19 05:02] LABS: Add Urine Microscopic? YES; Bilirubin Urine 1+ (Negative); Blood Urine Neg (Negative); Glucose Urine UA Norm (Normal); Ketones Urine 1+ (Negative); Leukocyte Esterase Urine Trace (Negative); Nitrate Urine Negative (Negative); Protein Urine Trace (Negative); Specific Gravity, Urine 1.025 (1.005-1.030); Urine Appearance SL Hazy (CLEAR); Urine Color Amber (Yellow); Urobilinogen Urine 4 mg/dL (Negative); pH Urine 5 (5-7)
[2021-03-19 05:03] LABS: Add Urine Culture? No; Bacteria Urine 1+ /hpf; Hyaline Casts Urine 0-4 /lpf; Mucus Urine 1+ /hpf
[2021-03-19 05:04] LABS: Amphetamines Screen Urine Negative (Negative); Barbiturates Screen Urine Negative (Negative); Benzodiazepines Screen Urine Negative (Negative); Cocaine Screen Urine Negative (Negative); Opiate Screen Urine Negative (Negative); PCP Screen Urine Negative (Negative); THC Screen Urine Negative (Negative)
--- NOTE | 2021-03-19 09:02 | PC.NURSE ---
Packet faxed to [facility] in [place], [place].
--- NOTE | 2021-03-19 09:14 | PC.NURSE ---
Packet sent to [facility] in [place].
--- NOTE | 2021-03-19 09:18 | PC.NURSE ---
Continues to refuse vitals at this time. Will attempt again later.
[2021-03-19 12:23] VITALS: BP 138/74; PULSE 81; RESP 18; O2SAT 99
== END 2021-03-19 13:07 | disposition short-term general hospital (02) ==
PROVIDERS: Emergency Medicine; Emergency Provider Family Medicine; PCP Family Medicine
DX: F23 Brief psychotic disorder (principal)
CPT/HCPCS: 71045; 80053; 80306; 80307; 81001; 85025; 87426; 93005; 96372; 99285; J2060

== ENCOUNTER 2021-04-11 15:23 | Emergency (ER) | payer MEDICARE, SELFPAY ==
[2021-04-11 15:27] VITALS: BP 143/106; PULSE 72; RESP 15; TEMP 36.7; O2SAT 96; BMI 19.6
--- NOTE | 2021-04-11 15:38 | CT_ITS ---
WS: [id number] CT CERVICAL SPINE HISTORY: fall age >65 TECHNIQUE: Contiguous 2.5 mm axial imaging performed through the entire cervical spine. Sagittal and coronal reformats also performed. All CT scans at [facility] use at least one of these dose o ptimization techniques: automated exposure control; mA and/or kV adjustment per patient size (include s targeted exams where dose is matched to clinical indication); or iterative reconstruction. DLP: 477.98 mGy.cm COMPARISON: None available. Straightening of the normal cervical lordosis. Roth cervical junction is normal. Lateral masses of C1 and C2 are aligned. The odontoid is intact. Mild disc space narrowing at C5-6. No cervical spine fractures are identified. No high-grade central or foraminal stenosis. No inferior displacement of cerebellar tonsils. Visualized lung apices are clear. CT/CT cervical spin wo con* [id number] IMPRESSION: 1. No acute cervical spine fracture. 2. No high-grade central or foraminal stenosis. 3. Mild facet joint arthritis and disc disease throughout the cervical spine.
--- NOTE | 2021-04-11 15:38 | CT_ITS ---
WS: [id number] CT HEAD NONCONTRAST HISTORY: fall >64 yo TECHNIQUE: Contiguous axial imaging performed through the brain in 2.5 mm imaging. Bone and soft tiss ue windows. Sagittal and coronal reformats reviewed. All CT scans at [facility] use at least one of these dose optimization techniques: automated exposure control; mA and/or kV adjustment per pa tient size (includes targeted exams where dose is matched to clinical indication); or iterative recon struction. DLP: 1552.25 mGy.cm COMPARISON: None available. There is a large mixed subdural hematoma centered over the RIGHT cerebrum. Hematoma extends from the vertex inferiorly over the temporal frontal lobe. Maximum diameter is 3.0 cm and extends over a lengt h of 10.5 cm. There is significant mass effect upon the RIGHT frontal lobe. This is predominantly of decreased density but there are a few areas of increased density also. Mild midline shift by 9 mm. Temporal lobes are not dilated. No intraventricular blood. Otherwise mil d chronic ischemic disease and mild atrophy. Ventricles: No hydrocephalus. Paranasal sinuses: Mucoperiosteal thickening and small air-fluid levels in the maxillary sinuses. Mastoid air cells: Well pneumatized. Calvarium and scalp: There is significant motion artifact. Highly suspicious for nondisplaced fractur e involving the posterior RIGHT frontal bone. CT/CT head wo con* [id number] IMPRESSION: 1. Large RIGHT subdural hematoma with mixed blood products. Favor this is a ch ronic on acute subdural. 2. 8 mm of midline shift to the LEFT. 3. Suspicious but indeterminate for fracture involving the RIGHT frontal bone. Study limited by motion. Notified Nicolas Iqbal MD at 04/11/2021 4:05 PM.
--- NOTE | 2021-04-11 15:38 | XR_ITS ---
WS: [id number] BILATERAL RIBS, MULTIPLE VIEWS WITH PA CHEST HISTORY: fall COMPARISON: 03/19/2021 Lungs and mediastinum: Lungs are hyperexpanded. No pneumothorax or pulmonary contusion. Ribs: No rib fractures or bone destruction identified. Bones are diffusely osteopenic. XR/XR ribs BI mn 4V w CXR1V [id number] IMPRESSION: No rib fractures or pneumothorax is identified.
[2021-04-11 16:40] VITALS: BP 108/88; PULSE 75; RESP 14; O2SAT 94
--- NOTE | 2021-04-11 16:43 | ED_ITS ---
HPI - Fall General: Chief Complaint: Fall Stated Complaint: FALL, CONFUSED Time Seen by Provider: 04/11/21 15:28 History of Present Illness: HPI Narrative: Patient is a 81-year-old female with a history of dementia. She was brought here by EMS after a fall this morning in her bedroom. It is not witnessed her who is also elderly and somewhat frail was unable to get her up into bed so when daughter called to check on them she had EMS bring her here for further evaluation. Patient is demented and unable to give any history is not aware that she is here but did not does not complain of any pain. Think that she is here to have her stomach looked at I spoke to daughter who said that she is declined mentally her Alzheimer's gotten worse over the last several weeks to months and is been try to place her in a group home. 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 Daughter also states that she is on a blood thinner but she does not know what kind Patient unable to give review of symptoms due to dementia Review of Systems General: Reports: ROS unobtainable due to mental status Physical Exam Const: COMMON NORMALS: no acute distress, patient oriented x3, alert and well nourished EXAM LIMITATIONS: behavioral limitations; no altered mental status GENERAL APPEARANCE: cooperative, comfortable, well kempt and well developed; not in distress, not anxious, not combative, not disheveled, not lethargic and not frail appearing ORIENTATION/CONSCIOUSNESS: Yes awake, Yes oriented to person and Yes oriented to place; not oriented to time, not confused, not patient obtunded and not lethargic HENMT: COMMON NORMALS: normocephalic, atraumatic and hearing grossly normal bilaterally HEAD & SCALP: normocephalic and atraumatic FACE & SINUS: normal facial exam Eye: COMMON NORMALS: Equal, round and reactive pupils present and EOMs intact bilaterally PUPIL: Yes Equal, round and reactive pupils present Neck/C-Spine: COMMON NORMALS: full ROM CERVICAL SPINE: No pain with cervical ROM, No Cervical spine tenderness, No step off deformity, No Paracervical muscle tenderness, No Paracervical spasm and No collar present Chest: COMMONS NORMALS: normal inspection of the chest and normal palpation of entire chest wall CHEST: No abnormal inspection of the chest, No Symmetrical chest wall rise and No localized rib tenderness with anteroposterior compression Resp: COMMON NORMALS: normal respiratory effort, No use of accessory muscles and clear to auscultation bilaterally AUSCULTATION: clear to auscultation bilaterally Cardio: COMMON NORMALS: regular rate, regular rhythm and No murmurs present (Cardio) RATE: regular rate RHYTHM: regular rhythm Extremity: COMMON NORMALS: normal to inspection, full ROM and capillary refill normal NARRATIVE EXTREMITY EXAM: No tenderness palpation all 4 limbs clavicles anterior posterior ribs. Signs of any apparent injury dislocation Neuro: AMAN COMA SCALE: document GCS findings Herman coma scale eye opening: Spontaneous Aman coma scale verbal response: Orientated Herman coma scale motor response: Obey commands Herman coma scale total score: 15 COMMON NORMALS: patient oriented x3, CN's II-XII intact bilaterally, moves all extremities, no focal motor deficits and no sensory deficits noted SENSORIUM/ORIENTATION: Yes alert, Yes oriented to person, Yes oriented to place, No oriented to time and No lethargic Psych: COMMON NORMALS: mental status grossly normal, cooperative, normal affect and speech normal APPEARANCE: Yes well kempt SPEECH: Yes normal speech Skin: COMMON NORMALS: no rashes or lesions noted and no wounds GENERAL SKIN EXAM: no rashes or lesions noted Course ED course: Patient's CT of the head showed a 3 cm maximum acute on subacute subdural hematoma. There does appear to be some fresh blood. There is an 8 mm left shift. C-spine did not show any acute findings. She does have some facet arthropathy and arthritis. Spoke to daughter who requested her to be sent to [facility]. Dr. Scott at the emergency department graciously agreed to accept. Spoke to daughter again after acceptance and it was discovered the patient is on an unknown anticoagulant and is unclear whether the patient is taking it or not. Discussed this with the accepting provider we agreed to wait for a INR. Expected provider also requested leave her in a c-collar and they would MRI her spine at receiving hospital Patient remains neurologically intact was able to I discussed with her transfer. She is little bit nervous about this but understands the need. Vital Signs: Vital signs: Vital Signs Temperature 98.1 F 04/11/21 15:27 Pulse Rate 75 04/11/21 16:40 Respiratory Rate 14 04/11/21 16:40 Blood Pressure 108/88 04/11/21 16:40 Pulse Oximetry 94 09/16/21 16:40 MDM - Fall MDM Narrative: Medical decision making narrative: Patient is a 81-year-old female with dementia here with fall Intracranial bleeding, C-spine injury, rhabdomyolysis, pharyngeal Discharge Plan Discharge Patient Disposition: Transfer to ED Clinical Impression: Subdural hematoma Condition: Stable Prescriptions: No Action Unable to Assess RF: 0 Referrals: Jeovanny Leo DO [Primary Care Provider] - Coding Level of Care Code ED Quality Assurance Representative for Marquita Stern
[2021-04-11 16:47] LABS: Basophils % 0.3 %; Eosinophils # 0.2 10^3/uL (0.0-0.8); Eosinophils % 1.8 %; Hematocrit 46.4 % (37.0-47.0); Hemoglobin 15.1 g/dL (11.5-15.3); Lymphocytes % 9.2 %; Mean Corpuscular HGB Conc 32.5 g/dL (30.0-36.0); Mean Corpuscular Volume 95.3 fl (81-99); Mean Platelet Volume 11.5 fL (7.4-10.4); Monocytes % 9.1 %; Neutrophils # 8.83 10^3/uL (1.8-7.7); Neutrophils % 79.2 %; Nucleated Red Blood Cells % 0 %; Platelet Count 146 10^3/cmm (130-400); Red Blood Count 4.87 10^6/uL (4.1-5.3); Red Cell Distribution Width 12.5 % (12.1-15.1); White Blood Count 11.1 10^3/uL (4.0-10.0)
[2021-04-11 17:06] VITALS: BP 110/85; PULSE 75; RESP 14; O2SAT 94
[2021-04-11 17:08] LABS: INR 1.12 (0.8-1.2)
[2021-04-11 17:09] LABS: Partial Thromboplastin Time 32.4 SECONDS (23.9-36.7)
[2021-04-11 17:34] LABS: Alanine Aminotransferase 9 U/L (0-33); Albumin Level 3.5 g/dL (3.5-5.2); Alkaline Phosphatase 89 IU/L (35-105); Anion Gap 15.6 (5-19); Aspartate Amino Transferase 27 U/L (0-32); Blood Urea Nitrogen 14 mg/dL (8-23); Calcium 8.8 mg/dL (8.5-10.5); Carbon Dioxide 26 mmol/L (22-29); Chloride 103 mmol/L (98-107); Creatine Phosphokinase 243 U/L (26-192); Globulin 3.6 g/dL (1.3-4.6); Glucose 104 mg/dL (65-115); Osmolality Calculated 293 mOsm/kg (285-295); Potassium 3.6 mmol/L (3.5-5.1); Sodium 141 mmol/L (136-145); Total Protein 7.1 g/dL (6.6-8.7)
[2021-04-11 18:07] LABS: CKMB 4.7 ng/mL (0-5.34)
--- NOTE | 2021-04-12 10:03 | DCPLANNER ---
Patient was transferred, unable to make contact at this time.
== END 2021-04-11 17:10 ==
PROVIDERS: Emergency Provider Family Medicine; PCP Family Medicine
DX: S06.5X9A Traumatic subdural hemorrhage with loss of consciousness of unspecified duration, initial encounter (principal); W06.XXXA Fall from bed, initial encounter
CPT/HCPCS: 70450; 71111; 72125; 80053; 82550; 82553; 85025; 85610; 85730; 99285

== ENCOUNTER → 2021-06-17 14:24 | Outpatient (BNVA) | payer MEDICARE, MEDICAID, SELFPAY | PROVIDERS: PCP Family Medicine; Visit Provider Specialist | DX: G30.9 Alzheimer's disease, unspecified (principal); F02.80 Dementia in other diseases classified elsewhere, unspecified severity, without behavioral disturbance, psychotic disturbance, mood disturbance, and anxiety; I69.218 Other symptoms and signs involving cognitive functions following other nontraumatic intracranial hemorrhage; F01.50 Vascular dementia, unspecified severity, without behavioral disturbance, psychotic disturbance, mood disturbance, and anxiety | CPT/HCPCS: 99204 ==

== ENCOUNTER 2021-11-04 14:09 | Emergency (ER) | payer MEDICARE, MEDICAID, SELFPAY ==
[2021-11-04 14:16] VITALS: BP 96/58; PULSE 64; RESP 17; TEMP 36.6; O2SAT 96; BMI 25.7
--- NOTE | 2021-11-04 14:18 | XRR_ITS ---
PROCEDURE INFORMATION: Exam: XR Chest Exam date and time: 11/04/2021 2:41 PM Age: 81 years old Clinical indication: Cough and dyspnea; Additional info: Dyspnea/cough TECHNIQUE: Imaging protocol: XR of the chest. Views: 1 view. COMPARISON: CR XR ribs BI mn 4V w CXR1V [id number] 04/11/2021 3:55 PM FINDINGS: Lungs: Unremarkable. No consolidation. Pleural spaces: Unremarkable. No pleural effusion. No pneumothorax. Heart/Mediastinum: Similar cardiomegaly. Bones/joints: Unremarkable. XR/XR chest 1V portable [id number] IMPRESSION: Stable exam, no acute findings.
--- NOTE | 2021-11-04 14:18 | CT_ITS ---
WS: [id number] CT HEAD NONCONTRAST HISTORY: LOC TECHNIQUE: Contiguous axial imaging performed through the brain in 2.5 mm imaging. Bone and soft tiss ue windows. Sagittal and coronal reformats reviewed. All CT scans at [facility] use at least one of these dose optimization techniques: automated exposure control; mA and/or kV adjustment per pa tient size (includes targeted exams where dose is matched to clinical indication); or iterative recon struction. DLP: 970.82 mGy.cm COMPARISON: 04/11/2021 Patient had prior evacuation of a large RIGHT subdural mixed hematoma since 04/11/2021. On today's exa mination there is moderate increased subdural thickening which could be new acute blood products. The re is an adjacent postoperative changes which appears to be calcification or mesh graft. There is no midline shift or mass effect. Mild atrophy and chronic ischemic change. Ventricles: Normal size with no hydrocephalus. No inferior displacement of the cerebellar tonsils. Paranasal sinuses: As visualized are clear. Mastoid air cells: Mild coalescence of the LEFT mastoid air cells. Calvarium and scalp: Large RIGHT frontoparietal craniotomy. CT/CT head wo con* [id number] IMPRESSION: 1. Small RIGHT frontoparietal subdural collection measures 2 to 3 mm in diamet er. This is at the site of the previously described and evacuated mixed subdura l seen on 04/11/2021. No prior interval studies. This may be postoperative dural thickening but a small amount of recurrent extra-axial blood should be conside red. 2. Large RIGHT frontoparietal craniotomy.
--- NOTE | 2021-11-04 14:18 | ED_ITS ---
HPI - Syncope General: Chief Complaint: Syncope Stated Complaint: ALOC, SYNCOPAL EPISODE Time Seen by Provider: 11/04/21 14:10 Source: patient Mode of arrival: ambulatory History of Present Illness: 81-year-old female is a resident of local [facility] at [place]. She evidently had a syncopal episode there she was sitting her head slumped forward and she was unresponsive for time she would then raise her head and start talking again. She is on low Bactrim although the son who is at the bedside states she has not been known to have a history of seizures. She does have a known history of dementia she is awake and responsive now although not able to contribute much to history because of her dementia. She denies chest pain abdominal pain denies shortness of breath denies dysuria urgency or frequency denies nausea vomiting or diarrhea. Overall states she feels fine and she wants to leave. Patient has a history of stage II breast cancer which she completed treatment several years ago was initially diagnosed in 2009. She had a subdural hematoma recently April 2021 for which she had surgery. She is denying headache or vision changes at this time. MD complaint: almost passed out Onset (ago): minute(s) Prodromal symptoms: none Witnessed: Yes - by Bystander Context: at rest Injuries sustained associated with event: none Associated symptoms: Reports weakness; Deny abdominal pain, chest pain, fever(s), headache(s), lightheadedness, nausea, short of breath or vertigo Treatments prior to arrival: none Review of Systems Const: Denies: fever(s) ENMT: Denies: throat pain, ear or mastoid pain, nasal discharge or nasal congestion Card: Denies: chest pain or lightheadedness Resp: Denies: dyspnea, productive cough or non-productive cough GI: Denies: abdominal pain or nausea : Denies: flank pain, difficulty voiding, dysuria, urinary frequency or urinary urgency Skin/Breast: Denies: rash or pruritus Neuro: Denies: headache(s) or vertigo PFS ED PFSH: Social History Smoking and tobacco status: never smoked Physical Exam Const: COMMON NORMALS: no acute distress GENERAL APPEARANCE: cooperative and comfortable ORIENTATION/CONSCIOUSNESS: Yes awake HENMT: COMMON NORMALS: normocephalic, atraumatic and hearing grossly normal bilaterally HEAD & SCALP: normocephalic and atraumatic Resp: COMMON NORMALS: normal respiratory effort, No retractions, No use of accessory muscles and clear to auscultation bilaterally AUSCULTATION: clear to auscultation bilaterally Cardio: COMMON NORMALS: regular rate, regular rhythm and No murmurs present (Cardio) RATE: regular rate RHYTHM: regular rhythm GI: COMMON NORMALS: Soft to palpation and No hepatosplenomegaly present AUSCULTATION: Yes normoactive bowel sounds PALPATION: Yes Soft to palpation, No Tenderness to palpation present (GI), No Guarding due to palpation present (GI) and Yes No hepatosplenomegaly present Extremity: COMMON NORMALS: normal to inspection, capillary refill normal, no clubbing, cyanosis or edema, no calf tenderness and no pedal edema Skin: COMMON NORMALS: no rashes or lesions noted GENERAL SKIN EXAM: no rashes or lesions noted Course Vital Signs: Vital signs: Vital Signs Temperature 98 F 11/04/21 17:52 Pulse Rate 69 11/04/21 19:28 Respiratory Rate 18 11/04/21 19:28 Blood Pressure 127/96 11/04/21 19:28 Pulse Oximetry 95 11/04/21 19:28 MDM - Syncope Medical Decision Making Mild volume depletion with cystitis. Will give IV fluids and a gram of Rocephin. Discharge home with oral antibiotics to start tomorrow. CT shows 2 to 3 mm right frontal parietal subdural collection. Thought to be postoperative dural thickening small amount of blood is potential. Will repeat CT in 1 week. Discussed with neurosurgery at [place] with the physician who seen the patient in March 2021 he agrees with plan. Medical Records I reviewed the patient's medical records. Lab Data I reviewed the patient's lab results. : 11/04/21 14:24 11/04/21 14:24 Radiology Impressions Chest X-Ray 11/04/21 14:18 IMPRESSION: Stable exam, no acute findings. Head CT 11/04/21 14:18 IMPRESSION: 1. Small RIGHT frontoparietal subdural collection measures 2 to 3 mm in diameter. This is at the site of the previously described and evacuated mixed subdural seen on 04/11/2021. No prior interval studies. This may be postoperative dural thickening but a small amount of recurrent extra-axial blood should be considered. 2. Large RIGHT frontoparietal craniotomy. Laboratory Results WBC 6.2 10^3/uL (4.0-10.0) 11/04/21 14:24 RBC 4.09 10^6/uL (4.1-5.3) L 11/04/21 14:24 Hgb 12.7 g/dL (11.5-15.3) 11/04/21 14:24 Hct 40.0 % (37.0-47.0) 11/04/21 14:24 MCV 97.8 fl (81-99) 11/04/21 14:24 MCH 31.1 pg (28.0-34.0) 11/04/21 14: MCHC 31.8 g/dL (30.0-36.0) 11/04/21 14: RDW 13.3 % (12.1-15.1) 11/04/21 14:24 Plt Count 178 10^3/cmm (130-400) 11/04/21 14: MPV 11.4 fL (7.4-10.4) H 11/04/21 14:24 Neut % (Auto) 57.4 % 11/04/21 14:24 Lymph % (Auto) 26.4 % 11/04/21 14:24 [place] % (Auto) 9.0 % 11/04/21 14:24 Eos % (Auto) 6.4 % 11/04/21 14:24 Baso % (Auto) 0.3 % 11/04/21 14:24 Neut # (Auto) 3.57 10^3/uL (1.8-7.7) 11/04/21 14:24 Lymph # (Auto) 1.6 10^3/uL (0.8-4.8) 11/04/21 14:24 [place] # (Auto) 0.6 10^3/uL (0.2-0.9) 11/04/21 14:24 Eos # (Auto) 0.4 10^3/uL (0.0-0.8) 11/04/21 14:24 Baso # (Auto) 0.0 10^3/uL (0.0-0.1) 11/04/21 14:24 Nucleated RBC % (auto) 0 % 11/04/21 14:24 Nucleated RBCs # 0.0 /100WBC 11/04/21 14:24 Sodium 144 mmol/L (136-145) 11/04/21 14:24 Potassium 4.1 mmol/L (3.5-5.1) 11/04/21 14:24 Chloride 108 mmol/L (98-107) H 11/04/21 14:24 Carbon Dioxide 28 mmol/L (22-29) 11/04/21 14:24 Anion Gap 12.1 (5-19) 11/04/21 14:24 BUN 31 mg/dL (8-23) H 11/04/21 14:24 Creatinine 1.4 mg/dL (0.5-0.9) H 11/04/21 14:24 GFR Calculation Not Reportable 11/04/21 14:24 Glucose 70 mg/dL (65-115) 11/04/21 14:24 Calculated Osmolality 303 mOsm/kg (285-295) H 11/04/21 14:24 Calcium 9.0 mg/dL (8.5-10.5) 11/04/21 14:24 Total Bilirubin 0.2 mg/dL (0.15-1.2) 11/04/21 14:24 AST 13 U/L (0-32) 11/04/21 14:24 ALT 6 U/L (0-33) 11/04/21 14:24 Alkaline Phosphatase 60 IU/L (35-105) 11/04/21 14:24 Creatine Kinase 22 U/L (26-192) L 11/04/21 14:24 Troponin T Baseline 16 ng/L (0-10) H 11/04/21 14:24 Troponin T 120 Minute 15.57 ng/L (0-10) H 11/04/21 16:12 Delta Troponin T -0.43 ABS# (0-10) L 11/04/21 16:12 Total Protein 7.0 g/dL (6.6-8.7) 11/04/21 14:24 Albumin 3.5 g/dL (3.5-5.2) 11/04/21 14:24 Globulin 3.5 g/dL (1.3-4.6) 11/04/21 14:24 Urine Color Straw (Yellow) 11/04/21 16:00 Urine Appearance Sl hazy (CLEAR) 11/04/21 16:00 Urine pH 5 (5-7) 11/04/21 16:00 Ur Specific [place] 1.015 (1.005-1.030) 11/04/21 16:00 Urine Protein Neg (Negative) 11/04/21 16:00 Urine Glucose (UA) Norm (Normal) 11/04/21 16:00 Urine Ketones Negative (Negative) 11/04/21 16:00 Urine Blood Neg (Negative) 11/04/21 16:00 Urine Nitrate Positive (Negative) H 11/04/21 16:00 Urine Bilirubin Neg (Negative) 11/04/21 16:00 Urine Urobilinogen Norm mg/dL (Negative) 11/04/21 16:00 Ur Leukocyte Esterase 2+ (Negative) H 11/04/21 16:00 Urine RBC None /hpf (0-2) 11/04/21 16:00 Urine WBC 15-25 /hpf (0-5) H 11/04/21 16:00 Ur Squamous Epith Cells Rare /hpf (0-5) 11/04/21 16:00 Amorphous Sediment Not Reportable 11/04/21 16:00 Urine Bacteria 3+ /hpf (NONE) H 11/04/21 16:00 Discharge Plan Discharge Patient Disposition: Home Clinical Impression: Cystitis, Alzheimer disease, Multi-infarct dementia, Subdural hematoma Condition: Stable Prescriptions: New Macrodantin 100 mg capsule 100 mg PO BID 7 Days Qty: 14 0RF Rx Instructions: must administer with a meal/food No Action bisacodyl [Dulcolax (bisacodyl)] 10 mg suppository 10 mg [place] DAILY PRN (Reason: Constipation) 0RF magnesium hydroxide [Milk of Magnesia] 400 mg/5 mL suspension 30 ml PO BID PRN (Reason: Constipation) 0RF acetaminophen 325 mg capsule 325 mg PO Q6H PRN (Reason: Pain) 0RF cyanocobalamin (vitamin B-12) 1,000 mcg capsule 1,000 mcg PO DAILY 0RF levetiracetam 500 mg tablet 500 mg PO BID 0RF levothyroxine 25 mcg capsule 25 mcg PO DAILY 0RF sertraline 50 mg tablet 50 mg PO BID 0RF aspirin 81 mg tablet,chewable 81 mg PO DAILY 0RF quetiapine 25 mg tablet 25 mg PO BID 0RF Fleet Enema 19-7 gram/118 mL enema 118 ml SD DAILY PRN (Reason: Constipation) 0RF potassium chloride 20 mEq/15 mL liquid 20 meq PO DAILY 0RF furosemide 20 mg tablet 20 mg PO DAILY 0RF quetiapine 50 mg tablet 50 mg PO BEDTIME 0RF memantine 10 mg tablet 10 mg PO BID 0RF metoprolol tartrate 25 mg tablet 25 mg PO BID 0RF Discharge Orders: Discharge ED (Routine); Ordered 11/04/21 Ordered By: Zeus Madden Referrals: Jeovanny Leo DO [Primary Care Provider] - Patient Instructions: Opioid Safety Activity Restrictions/Additional Instructions: Repeat CT in 1 week. Coding Level of Care Code ED Director Of Recruitment And Admissions for Chg Fwd Exam Detailed
[2021-11-04 14:28] LABS: Basophils % 0.3 %; Eosinophils # 0.4 10^3/uL (0.0-0.8); Eosinophils % 6.4 %; Hemoglobin 12.7 g/dL (11.5-15.3); Lymphocytes # 1.6 10^3/uL (0.8-4.8); Lymphocytes % 26.4 %; Mean Corpuscular HGB Conc 31.8 g/dL (30.0-36.0); Mean Corpuscular Hemoglobin 31.1 pg (28.0-34.0); Mean Corpuscular Volume 97.8 fl (81-99); Mean Platelet Volume 11.4 fL (7.4-10.4); Monocytes # 0.6 10^3/uL (0.2-0.9); Neutrophils # 3.57 10^3/uL (1.8-7.7); Neutrophils % 57.4 %; Nucleated Red Blood Cells % 0 %; Platelet Count 178 10^3/cmm (130-400); Red Blood Count 4.09 10^6/uL (4.1-5.3); Red Cell Distribution Width 13.3 % (12.1-15.1); White Blood Count 6.2 10^3/uL (4.0-10.0)
[2021-11-04 14:49] LABS: Alanine Aminotransferase 6 U/L (0-33); Albumin Level 3.5 g/dL (3.5-5.2); Alkaline Phosphatase 60 IU/L (35-105); Anion Gap 12.1 (5-19); Aspartate Amino Transferase 13 U/L (0-32); Blood Urea Nitrogen 31 mg/dL (8-23); Carbon Dioxide 28 mmol/L (22-29); Chloride 108 mmol/L (98-107); Creatine Phosphokinase 22 U/L (26-192); Globulin 3.5 g/dL (1.3-4.6); Glucose 70 mg/dL (65-115); Osmolality Calculated 303 mOsm/kg (285-295); Potassium 4.1 mmol/L (3.5-5.1); Sodium 144 mmol/L (136-145); Total Bilirubin 0.2 mg/dL (0.15-1.2)
[2021-11-04 14:50] LABS: Troponin(5th) Baseline 16 ng/L (0-10)
--- NOTE | 2021-11-04 16:21 | ECG_ITS ---
[facility] Test Date: 2021-11-04 Pat Name: Candace Liu Department: Room: Gender: Female Network Cabler: : 1940 Requested By: Zeus Dejesus Order Number: [id number] Reading MD: Miguel Painter M.D. Measurements Intervals [place] Rate: 64 P: [place]: QRS: -65 QRSD: 121 T: 35 QT: 438 QTc: 454 Interpretive Statements ATRIAL FIBRILLATION LEFT AXIS DEVIATION [QRS AXIS < -30] POSSIBLE RIGHT VENTRICULAR CONDUCTION DELAY [RSR (QR) IN V1/V2] PROBABLE SEPTAL MYOCARDIAL INFARCTION , OF INDETERMINATE AGE [35 ms Q WAVE IN V1/V2] Compared to ECG 11/04/2021 14:28:45 Left-axis deviation now present Myocardial infarct finding now present Incomplete right bundle-branch block no longer present Left anterior fascicular block no longer present Electronically Signed On 11-04-2021 23:13:10 CDT by Miguel Painter M.D. [id number]
[2021-11-04 16:32] LABS: Specific Gravity, Urine 1.015 (1.005-1.030); Urine Appearance SL Hazy (CLEAR); Urine Color Straw (Yellow); pH Urine 5 (5-7)
[2021-11-04 16:33] LABS: Add Urine Microscopic? YES; Bilirubin Urine Neg (Negative); Blood Urine Neg (Negative); Glucose Urine UA Norm (Normal); Ketones Urine Negative (Negative); Leukocyte Esterase Urine 2+ (Negative); Nitrate Urine Positive (Negative); Protein Urine Neg (Negative); Urobilinogen Urine Norm (Negative)
[2021-11-04 16:48] LABS: WBC Urine 15-25 /hpf (0-5)
[2021-11-04 16:49] LABS: Add Urine Culture? Yes; Bacteria Urine 3+ /hpf; Squamous Epithelial Cell Urine RARE /hpf (0-5)
[2021-11-04 16:57] LABS: Troponin 5 2HR 15.57 ng/L (0-10)
[2021-11-04 17:02] LABS: Troponin 5 2HR Delta -0.43 ABS# (0-10)
[2021-11-04] MEDS: sodium chloride 0.9% 1,000 ML 999 ML IV (17:43)
[2021-11-04] MEDS: cefTRIAXone 1,000 MG in sodium chloride 0.9% (plus) 50 ML 100 MG IV (17:43)
[2021-11-04 17:52] VITALS: BP 130/77; PULSE 16; RESP 18; TEMP 36.6; O2SAT 96
--- NOTE | 2021-11-04 18:17 | PC.NURSE ---
Report called to Christina. Will transport back to nursing facility after fluids & IV abx. Will start oral abx tomorrow.
--- NOTE | 2021-11-04 19:22 | PC.NURSE ---
This RN called [phone] for arrangement of medicaid ambulance transfer. Spoke with Mildred for transport. called at [phone]. Up to 3 hours, can come sooner [place] on resources, [place] [id number].
[2021-11-04 19:28] VITALS: BP 127/96; PULSE 69; RESP 18; O2SAT 95
--- NOTE | 2021-11-04 19:29 | PC.NURSE ---
Patient in bed, resting with eyes closed, patient woke up while RN checking vitals machine. Patient denies any needs at this time. Patient breathing even and non-labored. No distress noted.
--- NOTE | 2021-11-04 20:21 | ECG_ITS ---
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 Measurements Intervals [place] Rate: 64 P: [place]: QRS: -63 QRSD: 118 T: 15 QT: 432 QTc: 449 Interpretive Statements ATRIAL FIBRILLATION PATTERN CONSISTENT WITH PULMONARY DISEASE INCOMPLETE RIGHT BUNDLE BRANCH BLOCK [90+ ms QRS DURATION, TERMINAL R IN V1/V2, 40+ ms S IN I/aVL/V4/V5/V6] LEFT ANTERIOR FASCICULAR BLOCK [QRS AXIS <= -45, QR IN I, RS IN II] Compared to ECG 03/18/2021 23:59:32 Incomplete right bundle-branch block now present Electronically Signed On 11-04-2021 23:13:00 CDT by Miguel Painter M.D. [id number]
--- NOTE | 2021-11-05 16:11 | DCPLANNER ---
Addendum entered by Glenna Tejeda 01/03/22 11:07: Patient had the CT scan completed in the ER on 11.12.21. Original Note: survey project manager had message to schedule an out patient CT. survey project manager faxed signed order to centralized scheduling, who will call patient with appointment information.
== END 2021-11-04 20:19 | disposition home or self-care (01) ==
PROVIDERS: Emergency Provider Family Medicine; PCP Family Medicine
DX: N30.90 Cystitis, unspecified without hematuria (principal); G30.9 Alzheimer's disease, unspecified; F01.50 Vascular dementia, unspecified severity, without behavioral disturbance, psychotic disturbance, mood disturbance, and anxiety; I62.00 Nontraumatic subdural hemorrhage, unspecified
CPT/HCPCS: 70450; 71045; 80053; 81001; 82550; 84484; 85025; 87077; 87086; 87186; 93005; 96365; 99284; C1751; J0696; J7030

== ENCOUNTER 2021-11-12 10:26 | Emergency (ER) | payer MEDICARE, MEDICAID, SELFPAY ==
[2021-11-12 10:37] VITALS: BP 90/52; PULSE 70; RESP 18; TEMP 36.1; O2SAT 95
--- NOTE | 2021-11-12 10:42 | ED_ITS ---
HPI - Syncope General: Chief Complaint: Syncope Stated Complaint: SYNCOPAL EPISODE Time Seen by Provider: 11/12/21 10:35 Source: patient Mode of arrival: EMS History of Present Illness: 81-year-old female presents emergency room and report of a syncopal-like episode. She was seen here recently for a syncopal- like episode evaluation was unremarkable she does have a history of dementia that is pretty significant. She also had previously a subdural hematoma that was quite large and was drained. On the recent evaluation there was a question of a subdural bleed likely was just thickening from the previous subdural it was not clear we discussed with neurology neurosurgeon had previously treated her as well as with her attending and decided just to observe and repeat a CT. Evidently she had another episode where they thought she might of passed out and they sent her back in today for the repeat CT of her head. complaint: almost passed out Onset (ago): minute(s) Prodromal symptoms: none Witnessed: Yes - by Other Context: at rest Associated symptoms: Deny fever(s) History: other (History of subdural hematoma) Treatments prior to arrival: none Review of Systems General: Reports: ROS unobtainable due to mental status Const: Denies: fever(s) PFSH ED PFSH: Social History Smoking and tobacco status: never smoked Physical Exam Const: GENERAL APPEARANCE: cooperative and comfortable ORIENTATION/CONSCIOUSNESS: Yes awake HENMT: COMMON NORMALS: normocephalic and atraumatic HEAD & SCALP: normocephalic and atraumatic Eye: COMMON NORMALS: Equal, round and reactive pupils present, conjunctivae normal and no scleral icterus CONJUNCTIVA: Yes conjunctivae normal PUPIL: Yes Equal, round and reactive pupils present Neck/C-Spine: COMMON NORMALS: full ROM, no lymphadenopathy, supple and no JVD Lymph: LYMPHATIC: no lymphadenopathy noted and no lymphedema noted Resp: COMMON NORMALS: normal respiratory effort, No retractions, No use of accessory muscles and clear to auscultation bilaterally AUSCULTATION: clear to auscultation bilaterally Cardio: COMMON NORMALS: no JVD, regular rate, regular rhythm and No murmurs present (Cardio) RATE: regular rate RHYTHM: regular rhythm GI: COMMON NORMALS: Soft to palpation and No hepatosplenomegaly present AUSCULTATION: Yes normoactive bowel sounds PALPATION: Yes Soft to palpation, No Tenderness to palpation present (GI), No Guarding due to palpation present (GI) and Yes No hepatosplenomegaly present Extremity: COMMON NORMALS: normal to inspection, capillary refill normal, no c lubbing, cyanosis or edema, no calf tenderness and no pedal edema Skin: COMMON NORMALS: no rashes or lesions noted GENERAL SKIN EXAM: no rashes or lesions noted Course Vital Signs: Vital signs: Vital Signs Temperature 97.9 F 11/12/21 16:27 Pulse Rate 65 11/12/21 16:27 Respiratory Rate 17 11/12/21 16:27 Blood Pressure 111/68 11/12/21 16:27 Pulse Oximetry 95 11/12/21 16:27 MDM - Syncope Medical Decision Making CT of the head is generally unremarkable. The changes seen previously appear to be chronic changes from the previous subdural there is no evidence of new acute bleed. Other lab works unremarkable at this point does not require hospitalization she does have some slight chronic kidney disease but that symptom remains unchanged. [facility] to the [facility] with no changes in med ications. Medical Records I reviewed the patient's medical records. Lab Data I reviewed the patient's lab results. : 11/12/21 13:55 11/12/21 13:[address] 11/12/21 10:45 IMPRESSION: 1. Previously described area of potential subdural hemorrhage overlying the RIGHT frontal lobe is unchanged. This may represent chronic dural thickening from prior craniotomy. Recommend additional short interval follow-up to confirm stability 2. Moderate small vessel changes with moderate parenchymal volume loss. 3. Prior RIGHT frontal parietal craniotomy. Laboratory Results WBC 7.6 10^3/uL (4.0-10.0) 11/12/21 13:55 Corrected WBC Cancelled 11/12/21 13:05 RBC 4.16 10^6/uL (4.1-5.3) 11/12/21 13:55 Hgb 12.7 g/dL (11.5-15.3) 11/12/21 13:55 Hct 41.0 % (37.0-47.0) 11/12/21 13:55 MCV 98.6 fl (81-99) 11/12/21 13:55 MCH 30.5 pg (28.0-34.0) 11/12/21 13:55 MCHC 31.0 g/dL (30.0-36.0) 11/12/21 13:55 RDW 13.2 % (12.1-15.1) 11/12/21 13:55 Plt Count 181 10^3/cmm (130-400) 11/12/21 13:55 MPV 11.1 fL (7.4-10.4) H 11/12/21 13:55 Gran % Cancelled 11/12/21 13:05 Neut % (Auto) 70.4 % 11/12/21 13:55 Lymph % (Auto) 18.0 % 11/12/21 13:55 [place] % (Auto) 7.2 % 11/12/21 13:55 Eos % (Auto) 3.8 % 11/12/21 13:55 Baso % (Auto) 0.3 % 11/12/21 13:55 Neut # (Auto) 5.32 10^3/uL (1.8-7.7) 11/12/21 13:55 Lymph # (Auto) 1.4 10^3/uL (0.8-4.8) 11/12/21 13:55 [place] # (Auto) 0.5 10^3/uL (0.2-0.9) 11/12/21 13:55 Eos # (Auto) 0.3 10^3/uL (0.0-0.8) 11/12/21 13:55 Baso # (Auto) 0.0 10^3/uL (0.0-0.1) 11/12/21 13:55 Absolute Gran (auto) Cancelled 11/12/21 13:05 Nucleated RBC % (auto) 0 % 11/12/21 13:55 Nucleated RBCs # 0.0 /100WBC 11/12/21 13:55 Sodium 141 mmol/L (136-145) 11/12/21 13:05 Potassium 4.7 mmol/L (3.5-5.1) 11/12/21 13:05 Chloride 104 mmol/L (98-107) 11/12/21 13:05 Carbon Dioxide 30 mmol/L (22-29) H 11/12/21 13:05 Anion Gap 11.7 (5-19) 11/12/21 13:05 BUN 25 mg/dL (8-23) H 11/12/21 13:05 Creatinine 1.3 mg/dL (0.5-0.9) H 11/12/21 13:05 GFR Calculation Not Reportable 11/12/21 13:05 Glucose 75 mg/dL (65-115) 11/12/21 13:05 Calculated Osmolality 295 mOsm/kg (285-295) 11/12/21 13:05 Calcium 9.6 mg/dL (8.5-10.5) 11/12/21 13:05 Total Bilirubin 0.5 mg/dL (0.15-1.2) 11/12/21 13:05 AST 18 U/L (0-32) 11/12/21 13:05 ALT 7 U/L (0-33) 11/12/21 13:05 Alkaline Phosphatase 69 IU/L (35-105) 11/12/21 13:05 Total Protein 7.6 g/dL (6.6-8.7) 11/12/21 13:05 Albumin 4.1 g/dL (3.5-5.2) 11/12/21 13:05 Globulin 3.5 g/dL (1.3-4.6) 11/12/21 13:05 Discharge Plan Discharge Patient Disposition: Home Clinical Impression: Multi-infarct dementia, Personal history of subdural hematoma, Syncope Condition: Stable Prescriptions: No Action bisacodyl [Dulcolax (bisacodyl)] 10 mg suppository 10 mg [place] DAILY PRN (Reason: Constipation) 0RF magnesium hydroxide [Milk of Magnesia] 400 mg/5 mL suspension 30 ml PO DAILY PRN (Reason: Constipation) 0RF cyanocobalamin (vitamin B-12) 1,000 mcg capsule 1,000 mcg PO DAILY@09 0RF levetiracetam 500 mg tablet 500 mg PO BID@,18 0RF sertraline 50 mg tablet 50 mg PO BID 0RF aspirin 81 mg tablet,chewable 81 mg PO DAILY@09 0RF quetiapine 25 mg tablet 25 mg PO DAILY@09 0RF Fleet Enema 19-7 gram/118 mL enema 118 ml [place] DAILY PRN (Reason: Constipation) 0RF potassium chloride 20 mEq/15 mL liquid 20 meq PO DAILY@09 0RF furosemide 20 mg tablet 20 mg PO DAILY 0RF quetiapine 50 mg tablet 50 mg PO BEDTIME 0RF memantine 10 mg tablet 10 mg PO BID 0RF metoprolol tartrate 25 mg tablet 25 mg PO BID 0RF Tylenol 325 mg Tablet 650 mg PO Q6H PRN (Reason: Pain) 0RF levothyroxine 25 mcg tablet 25 mcg PO DAILY@06 0RF Discharge Orders: Discharge ED (Routine); Ordered 11/12/21 Ordered By: eZus Madden Referrals: Jeovanny Leo DO [Primary Care Provider] - Discharge Diet: Usual diet Discharge Activity: Increase activity as tolerated Patient Instructions: Opioid Safety Coding Level of Care Code ED Street Engineer for Marquita Stern
--- NOTE | 2021-11-12 10:45 | CT_ITS ---
WS: [id number] CT HEAD TECHNIQUE: Noncontrast CT of the head obtained from the skullbase to the vertex. CLINICAL INFORMATION: Headache, previous subdural hematoma COMPARISON: CT November 04, 2021 DLP: 1080.[address] scans at [facility] use at least one of these dose optimization techniques: automated e xposure control; mA and/or kV adjustment per patient size (includes targeted exams where dose is matc hed to clinical indication); or iterative reconstruction. FINDINGS: Previously described area of potential subdural hemorrhage is unchanged. This may represent chronic d ural thickening from prior craniotomy.This measures 3 mm in maximum transverse dimension. Ventricular system and basal cisterns are patent. Moderate small vessel changes with moderate parenchymal volume loss. Prior RIGHT frontoparietal craniotomy. Chronic lacunar infarct LEFT basal ganglia. Paranasal sinuses and mastoid air cells are well aerated. .Normal visualized soft tissues. CT/CT head wo con* [id number] IMPRESSION: 1. Previously described area of potential subdural hemorrhage overlying the RI GHT frontal lobe is unchanged. This may represent chronic dural thickening from prior craniotomy. Recommend additional short interval follow-up to confirm sta bility 2. Moderate small vessel changes with moderate parenchymal volume loss. 3. Prior RIGHT frontal parietal craniotomy.
--- NOTE | 2021-11-12 12:09 | PC.PHAR ---
pt is from [facility]-jonathan nurse from [facility] states the pt had am meds at 09:00
[2021-11-12] MEDS: sodium chloride 0.9% 500 ML 999 ML IV (13:00)
[2021-11-12 13:07] VITALS: BP 119/62; PULSE 74; RESP 17; O2SAT 94
[2021-11-12 13:29] LABS: Alanine Aminotransferase 7 U/L (0-33); Albumin Level 4.1 g/dL (3.5-5.2); Alkaline Phosphatase 69 IU/L (35-105); Anion Gap 11.7 (5-19); Aspartate Amino Transferase 18 U/L (0-32); Blood Urea Nitrogen 25 mg/dL (8-23); Calcium 9.6 mg/dL (8.5-10.5); Carbon Dioxide 30 mmol/L (22-29); Chloride 104 mmol/L (98-107); Globulin 3.5 g/dL (1.3-4.6); Glucose 75 mg/dL (65-115); Osmolality Calculated 295 mOsm/kg (285-295); Potassium 4.7 mmol/L (3.5-5.1); Sodium 141 mmol/L (136-145); Total Bilirubin 0.5 mg/dL (0.15-1.2); Total Protein 7.6 g/dL (6.6-8.7)
--- NOTE | 2021-11-12 13:52 | PC.NURSE ---
updated Fátima at [facility]
[2021-11-12 14:01] LABS: Basophils % 0.3 %; Eosinophils # 0.3 10^3/uL (0.0-0.8); Eosinophils % 3.8 %; Hemoglobin 12.7 g/dL (11.5-15.3); Lymphocytes # 1.4 10^3/uL (0.8-4.8); Mean Corpuscular Hemoglobin 30.5 pg (28.0-34.0); Mean Corpuscular Volume 98.6 fl (81-99); Mean Platelet Volume 11.1 fL (7.4-10.4); Monocytes # 0.5 10^3/uL (0.2-0.9); Monocytes % 7.2 %; Neutrophils # 5.32 10^3/uL (1.8-7.7); Neutrophils % 70.4 %; Nucleated Red Blood Cells % 0 %; Platelet Count 181 10^3/cmm (130-400); Red Blood Count 4.16 10^6/uL (4.1-5.3); Red Cell Distribution Width 13.2 % (12.1-15.1); White Blood Count 7.6 10^3/uL (4.0-10.0)
[2021-11-12 14:50] VITALS: BP 110/64; PULSE 63; RESP 16; TEMP 36.4; O2SAT 95
--- NOTE | 2021-11-12 14:51 | DCPLANNER ---
district claims manager was asked to arrange for transportation for patient. district claims manager [facility].
[2021-11-12 16:25] VITALS: BP 111/68; PULSE 65; RESP 17; TEMP 36.6; O2SAT 95
[2021-11-12 16:27] VITALS: BP 111/68; PULSE 65; RESP 17; TEMP 36.6; O2SAT 95
== END 2021-11-12 16:25 | disposition home or self-care (01) ==
PROVIDERS: Emergency Provider Family Medicine; PCP Family Medicine
DX: R55 Syncope and collapse (principal); F01.50 Vascular dementia, unspecified severity, without behavioral disturbance, psychotic disturbance, mood disturbance, and anxiety
CPT/HCPCS: 70450; 80053; 85025; 96360; 96361; 99283; J7040

== ENCOUNTER 2024-06-05 18:30 | Inpatient (IN) | payer MEDICARE, SELFPAY ==
[2024-06-05] VITALS (24 sets, daily range): BP systolic 84–127; BP diastolic 37–81; PULSE 79–105; RESP 14–23; TEMP 36.1; O2SAT 92–97; BMI 33.3
--- NOTE | 2024-06-05 19:10 | XRR_ITS ---
PROCEDURE INFORMATION: Exam: XR Chest Exam date and time: 06/05/2024 7:26 PM Age: 84 years old Clinical indication: Shortness of breath; Additional info: Aspiration; Cough; SOB; Weakness; AMS. TECHNIQUE: Imaging protocol: Radiologic exam of the chest. Views: 1 view. COMPARISON: CR XR chest 1V portable [id number] 11/04/2021 2:41 PM FINDINGS: Lungs: Left upper lobe and left lower lobe pneumonic infiltrates suspected. Emphysematous changes. Pleural spaces: Small left pleural effusion. Heart/Mediastinum: Cardiomegaly. Bones/joints: Unremarkable. XR/XR chest 1V portable [id number] IMPRESSION: 1. Cardiomegaly. 2. Small left pleural effusion. 3. Left upper lobe and left lower lobe pneumonic infiltrates suspected. 4. Emphysematous changes.
--- NOTE | 2024-06-05 20:05 | W.ED.SOB ---
HPI - SOB/Dyspnea General: Chief Complaint: Shortness of Breath/Dyspnea Stated Complaint: AMS Time Seen by Provider: 06/05/24 18:33 History of Present Illness: HPI Narrative: This patient is an 84-year-old white female senior care resident who was sent to the emergency department for evaluation after possible aspiration. The senior care records indicate that the patient had her sats dropped briefly into this 70s and heart rate into the 150s. Vital signs are back to normal now. Patient has severe multi-infarct dementia and I am unable to obtain any history from the patient. Evidently she is at her baseline mental status. Related Data Home Medications Medication Instructions Recorded Confirmed aspirin 81 mg chewable tablet 81 mg PO DAILY@06/17/21 11/12/21 bisacodyl 10 mg rectal suppository 10 mg AK DAILY PRN Constipation 06/17/21 11/12/21 (Dulcolax (bisacodyl)) cyanocobalamin (vitamin B-12) 1,000 mcg PO DAILY@06/17/21 11/12/21 1,000 mcg capsule levetiracetam 500 mg tablet 500 mg PO BID@06/17/21 11/12/21 magnesium hydroxide 400 mg/5 mL 30 ml PO DAILY PRN Constipation 06/17/21 11/12/21 oral suspension (Milk of Magnesia) quetiapine 25 mg tablet 25 mg PO DAILY@06/17/21 11/12/21 sertraline 50 mg tablet 50 mg PO BID 06/17/21 11/12/21 sodium phosphates 19 gram-7 118 ml AK DAILY PRN Constipation 06/17/21 11/12/21 gram/118 mL enema (Fleet Enema) furosemide 20 mg tablet 20 mg PO DAILY 11/04/21 11/12/21 memantine 10 mg tablet 10 mg PO BID 11/04/21 11/12/21 metoprolol tartrate 25 mg tablet 25 mg PO BID 11/04/21 11/12/21 potassium chloride 20 mEq/15 mL 20 meq PO DAILY@11/04/21 11/12/21 oral liquid quetiapine 50 mg tablet 50 mg PO BEDTIME 11/04/21 11/12/21 acetaminophen 325 mg tablet 650 mg PO Q6H PRN Pain 11/12/21 11/12/21 (Tylenol) levothyroxine 25 mcg tablet 25 mcg PO DAILY@06 11/12/21 11/12/21 Allergies Allergy/AdvReac Type Severity Reaction Status Date / Time No Known Allergies Allergy Verified 06/05/24 18:45 Review of Systems General: Reports: ROS unobtainable due to medical condition and ROS unobtainable due to mental status PFSH ED PFSH: Social History Smoking and tobacco/nicotine status: never used tobacco/nicotine Physical Exam Const: COMMON NORMALS: no acute distress HENMT: COMMON NORMALS: normocephalic, atraumatic, Normal nasal mucous membranes and turbinates present, moist oral mucous membranes and oropharynx normal HEAD & SCALP: normal to inspection, normocephalic and atraumatic FACE & SINUS: normal facial exam NOSE: Normal nasal mucous membranes and turbinates present Eye: COMMON NORMALS: Equal, round and reactive pupils present, EOMs intact bilaterally and conjunctivae normal GENERAL EYE: appearance normal, both eyes and all related structures CONJUNCTIVA: Yes conjunctivae normal PUPIL: Yes Equal, round and reactive pupils present Neck/C-Spine: COMMON NORMALS: supple and no JVD Chest: COMMONS NORMALS: normal inspection of the chest Resp: COMMON NORMALS: normal respiratory effort and clear to auscultation bilaterally AUSCULTATION: clear to auscultation bilaterally Cardio: COMMON NORMALS: no JVD, regular rate, regular rhythm, No gallops present (Cardio), No murmurs present (Cardio) and No rub (Cardio) RATE: regular rate RHYTHM: regular rhythm GI: COMMON NORMALS: Normal to inspection, nondistended, normoactive bowel sounds present, Soft to palpation and non-tender AUSCULTATION: Yes normoactive bowel sounds PALPATION: Yes Soft to palpation Course Vital Signs: Vital signs: Vital Signs Temperature 97.0 F L 06/05/24 18:31 Pulse Rate 87 06/05/24 19:30 Respiratory Rate 19 H 06/05/24 18:31 Pulse Oximetry 93 06/05/24 19:30 Oxygen Delivery Me thod Room Air 06/05/24 19:30 MDM - SOB/Dyspnea Medical Decision Making Chest x-ray did not reveal any infiltrates. Patient's heart rate is 87. She is satting 93 to 96% on room air. She is in no respiratory distress. Patient was discharged back to the senior care in stable condition. XR interpretation done by ED provider, pending radiology final review Discharge Plan Discharge Patient Disposition: Home Clinical Impression: Aspiration into airway Qualifiers: Encounter type: initial encounter Qualified Code(s): T17.908A - Unspecified foreign body in respiratory tract, part unspecified causing other injury, initial encounter Condition: Stable Prescriptions: No Action bisacodyl [Dulcolax (bisacodyl)] 10 mg suppository 10 mg AK DAILY PRN (Reason: Constipation) magnesium hydroxide [Milk of Magnesia] 400 mg/5 mL suspension 30 ml PO DAILY PRN (Reason: Constipation) cyanocobalamin (vitamin B-12) 1,000 mcg capsule 1,000 mcg PO DAILY@09 levetiracetam 500 mg tablet 500 mg PO BID@09,18 sertraline 50 mg tablet 50 mg PO BID aspirin 81 mg tablet,chewable 81 mg PO DAILY@09 quetiapine 25 mg tablet 25 mg PO DAILY@09 Fleet Enema 19-7 gram/118 mL enema 118 ml AK DAILY PRN (Reason: Constipation) potassium chloride 20 mEq/15 mL liquid 20 meq PO DAILY@09 furosemide 20 mg tablet 20 mg PO DAILY quetiapine 50 mg tablet 50 mg PO BEDTIME memantine 10 mg tablet 10 mg PO BID metoprolol tartrate 25 mg tablet 25 mg PO BID Tylenol 325 mg Tablet 650 mg PO Q6H PRN (Reason: Pain) levothyroxine 25 mcg tablet 25 mcg PO DAILY@06 Discharge Orders: Discharge ED (Routine); Ordered 06/05/24 Ordered By: Pramod Bain Referrals: Jeovanny Leo DO [Primary Care Provider] - Patient Instructions: Aspiration, Aspiration Precautions (ED) Activity Restrictions/Additional Instructions: If the patient develops fever contact her primary care provider and obtain another chest x-ray. 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
--- NOTE | 2024-06-05 20:47 | PC.NURSE ---
[facility] NURSE, JOSEPHINE, CONTACTED. [facility] NURSE INFORMED THAT EMS WAS GIVEN WRONG REPORT AND THAT THE INITIAL COMPLAINT OF PT ED VISIT IS POSSIBLE COFFEE GROUND AND FECES IN EMESIS AT NOON. PT HAS HX OF BOWEL BLOCKAGES PER [facility]. NURSE STATES THAT PT IS USUALLY NOT ON O2 AND HER BP IS NORMAL AT THE [facility]. DR ANDERSON NOTIFIED. PT HAS NOT HAD ANY VOMITING AT THIS TIME AND PT WAS PLACED ON 2L NC OF O2 FOR SATS IN 85-89% WHILE SLEEPING.
--- NOTE | 2024-06-05 20:59 | XRR_ITS ---
PROCEDURE INFORMATION: Exam: XR Abdomen Exam date and time: 06/05/2024 9:03 PM Age: 84 years old Clinical indication: Vomiting TECHNIQUE: Imaging protocol: Radiologic exam of the abdomen. Views: 2 Views. Upright and supine views. COMPARISON: CT abdomen pelvis w con* [id number] 12/31/2018 9:45 AM FINDINGS: Gastrointestinal tract: Moderate to severe constipation without bowel dilation to indicate obstruction. Intraperitoneal space: Normal. No free air. Bones/joints: Unremarkable for age. XR/XR abdomen min 2V [id number] IMPRESSION: Moderate to severe constipation without bowel dilation to indicate obstruction.
[2024-06-05 21:17] LABS: Basophils % 0.3 %; Eosinophils % 0.2 %; Hematocrit 46.3 % (36-47); Lymphocytes # 0.5 10^3/uL (0.8-4.8); Lymphocytes % 3.4 %; Mean Corpuscular Hemoglobin 31.8 pg (27-33); Mean Corpuscular Volume 99.6 fl (85-98); Mean Platelet Volume 12.5 fL (7.4-10.4); Monocytes # 0.5 10^3/uL (0.2-0.9); Monocytes % 3.7 %; Neutrophils # 12.85 10^3/uL (1.8-7.7); Neutrophils % 91.8 %; Nucleated Red Blood Cells % 0 %; Platelet Count 116 10^3/cmm (157-399); Red Blood Count 4.65 10^6/uL (3.85-5.65); Red Cell Distribution Width 15.5 % (12.1-15.1); White Blood Count 13.99 10^3/uL (3.29-11.43)
[2024-06-05] MEDS: sodium chloride 0.9% 1,000 ML 999 ML IV (21:21)
[2024-06-05 21:38] LABS: Alanine Aminotransferase 15 U/L (0-33); Alkaline Phosphatase 173 U/L (35-105); Anion Gap 15.3 (5-19); Aspartate Amino Transferase 25 U/L (0-32); Blood Urea Nitrogen 50 mg/dL (8-23); Calcium 8.6 mg/dL (8.5-10.5); Carbon Dioxide 30 mmol/L (22-29); Chloride 107 mmol/L (98-107); Creatinine Clr Calc Pharmacy 25.4265; Globulin 4.2 g/dL (1.3-4.6); Glucose 79 mg/dL (65-115); Osmolality Calculated 316 mOsm/kg (285-295); Potassium 5.3 mmol/L (3.5-5.1); Sodium 147 mmol/L (136-145); Total Bilirubin 0.4 mg/dL (0.15-1.2); Total Protein 7.2 g/dL (6.6-8.7)
[2024-06-05 21:42] LABS: Slide Review Slide Review Perform
[2024-06-05 21:46] LABS: Lipase 914 U/L (13-60)
--- NOTE | 2024-06-05 21:57 | P.HP_ITS ---
Providers/Chief Complaint 2 Primary Care Provider: Jeovanny Leo DO Chief Complaint: AMS History of Present Illness Candace Liu is a 84 year old female with history of A-fib, osteopenia, vascular dementia, grade 3 right breast cancer, patient is not a good historian, resident of [facility] presented with complaint of brown- colored emesis with concern for aspiration. Patient is not able to provide history, she is moaning in pain every time we try to examine her she would make eye contact but would not participate or reciprocating conversation. As per the chart review patient has history of dementia, subdural hemorrhage evacuation history, breast cancer, she does have behavioral issues, she gets Seroquel/Zyprexa on as needed basis for paranoia. Documentation from the group home reviewed CT showing DNR/DNI. Her diet is pur?ed, stays incontinent, will level diapers, sometimes refuses to eat, not able to communicate effectively. Review of Systems 2 General: Reports: ROS unobtainable due to medical condition Medications/Allergies Home Medications Medication Instructions Recorded Confirmed Last Taken Type aspirin 81 mg chewable tablet 81 mg PO DAILY@06/17/21 11/12/21 11/12/21 History bisacodyl 10 mg rectal suppository 10 mg SD DAILY PRN Constipation 06/17/21 11/12/21 Unknown History (Dulcolax (bisacodyl)) cyanocobalamin (vitamin B-12) 1,000 mcg PO DAILY@06/17/21 11/12/21 11/12/21 History 1,000 mcg capsule levetiracetam 500 mg tablet 500 mg PO BID@06/17/21 11/12/21 11/12/21 History magnesium hydroxide 400 mg/5 mL 30 ml PO DAILY PRN Constipation 06/17/21 11/12/21 Unknown History oral suspension (Milk of Magnesia) quetiapine 25 mg tablet 25 mg PO DAILY@06/17/21 11/12/21 11/12/21 History sertraline 50 mg tablet 50 mg PO BID 06/17/21 11/12/21 11/12/21 History sodium phosphates 19 gram-7 118 ml SD DAILY PRN Constipation 06/17/21 11/12/21 Unknown History gram/118 mL enema (Fleet Enema) furosemide 20 mg tablet 20 mg PO DAILY 11/04/21 11/12/21 11/12/21 History memantine 10 mg tablet 10 mg PO BID 11/04/21 11/12/21 11/12/21 History metoprolol tartrate 25 mg tablet 25 mg PO BID 11/04/21 11/12/21 11/12/21 History potassium chloride 20 mEq/15 mL 20 meq PO DAILY@09 11/04/21 11/12/21 11/12/21 History oral liquid quetiapine 50 mg tablet 50 mg PO BEDTIME 11/04/21 11/12/21 11/11/21 History acetaminophen 325 mg tablet 650 mg PO Q6H PRN Pain 11/12/21 11/12/21 11/12/21 09:00 History (Tylenol) levothyroxine 25 mcg tablet 25 mcg PO DAILY@06 11/12/21 11/12/21 11/12/21 06:15 History Allergies Allergy/AdvReac Type Severity Reaction Status Date / Time No Known Allergies Allergy Verified 06/05/24 18:45 PFSH Acute 2 PFSH: Medical History (Updated 06/05/24 @ 22:02 by Sam Jensen MD) Unable to determine patient do not resuscitate (DNR) status Aphasia Oropharyngeal dysphagia Multi-infarct dementia Alzheimer disease Social History Smoking and tobacco/nicotine status: never used tobacco/nicotine Vitals/I&O/Wt Last Vital Signs Temp 97.0 F L 06/05/24 18:31 Pulse 90 06/05/24 21:30 Resp 18 06/05/24 21:30 BP 127/81 06/05/24 21:30 Pulse Ox 92 06/05/24 21:30 O2 Del Method Room Air 06/05/24 21:30 Weight last 48 hrs Weight 90.718 kg Physical Exam 2 Narrative: Patient is saturating 91 to 92% on room air Blood pressure is low She is morning and not able to express any concerns effectively during my exam She does have lower extremity edema Abdomen is distended, bloated and although her communication is minimal but with deep palpation she did not seem in excruciating pain Mucous membranes are dry S1, S2 Currently on room air Neuroexam is limited Wearing diaper Data 06/05/24 21:12 06/05/24 21:12 A&P Assessment and plan (1) Aspiration into airway: Qualifiers: Encounter type: initial encounter Qualified Code(s): T17.908A - Unspecified foreign body in respiratory tract, part unspecified causing other injury, initial encounter (2) Hypernatremia: (3) Constipation: (4) Oropharyngeal dysphagia: (5) Acute kidney injury superimposed on chronic kidney disease: (6) Hyperkalemia: (7) Aphasia: (8) Unable to determine patient do not resuscitate (DNR) status: Plan Hypernatremia Patient has not been able to eat much She has oropharyngeal dysphagia gets pur?ed diet I will request another speech therapy evaluation for concern of aspiration pneumonitis Okay for gentle fluid hydration Hyperkalemia with acute on chronic kidney disease Monitor urine output correlate with creatinine with IV fluid hydration overnight Aspiration pneumonia Will put patient on Zosyn SIRS criteria met with tachypnea tachycardia leukocytosis, will request lactic acid, she does have lower extremity edema will request D-dimer, will give her 30 mL/kg fluid bolus Request blood culture, Source seem to be aspiration Constipation with abdominal distention Rule out pancreatitis, lipase is 900, will also request triglyceride, hemoglobin A1c, requested CT abdomen pelvis without contrast Will give her lactulose No active sign obstruction as per the KUB Will also give her 1 dose of enema Add morphine DNR/DNI Pur?ed diet DVT prophylaxis: Heparin Dementia vascular, global aphasia Attestations 2 Medical Necessity Statement*: More than 2 midnights anticipated Diagnoses Aspiration into airway T17.908A Encounter type: initial encounter Hypernatremia E87.0 Constipation K59.00 Oropharyngeal dysphagia R13.12 Acute kidney injury superimposed on chronic kidney disease N17.9; N18.9 Hyperkalemia E87.5 Aphasia R47.01 Unable to determine patient do not resuscitate (DNR) status Z78.9
--- NOTE | 2024-06-05 22:08 | CTR_ITS ---
PROCEDURE INFORMATION: Exam: CT Abdomen And Pelvis Without Contrast Exam date and time: 06/05/2024 10:34 PM Age: 84 years old Clinical indication: Abnormal findings; Abnormal lab test; Abnormal kidney function lab tests and elevated lipase and elevated wbc; Patient HX: Vomiting with elevated wbc, dixon, and lipase of 1000. ; Additional info: Elevated lipase TECHNIQUE: Imaging protocol: Computed tomography of the abdomen and pelvis without contrast. Radiation optimization: All CT scans at this facility use at least one of these dose optimization techniques: automated exposure control; mA and/or kV adjustment per patient size (includes targeted exams where dose is matched to clinical indication); or iterative reconstruction. COMPARISON: CR (ABDOMEN, ) 06/05/2024 9:03 PM RADIATION DOSE METRICS: Total DLP (mGy-cm): 590.51 FINDINGS: Lungs: Emphysematous changes. Bibasilar atelectasis versus minimal infiltrate. Left lower lobe atelectasis versus infiltrate. Liver: Normal. No mass. Gallbladder and biliary ducts: Cholecystectomy. Pancreas: Mild peripancreatic edema, please correlate for pancreatitis. Spleen: Left upper abdominal splenule. Adrenal glands: Normal. No mass. Kidneys and ureters: Normal. No hydronephrosis. Stomach and bowel: Moderate constipation. Diverticulosis without diverticulitis. Appendix: No evidence of appendicitis. Intraperitoneal space: Unremarkable. No free air. No significant fluid collection. Vasculature: Aortic atherosclerotic calcifications Lymph nodes: Right inguinal 11 mm nonspecific lymph node. Urinary bladder: Unremarkable as visualized. Reproductive: Unremarkable as visualized. Bones/joints: Unremarkable. No acute fracture. Soft tissues: Unremarkable. CT/CT abdomen pelvis [facility] [id number] IMPRESSION: 1. Mild peripancreatic edema, please correlate for pancreatitis. 2. Right inguinal 11 mm nonspecific lymph node. 3. Emphysematous changes. 4. Bibasilar atelectasis versus minimal infiltrate. 5. Moderate constipation. 6. Diverticulosis without diverticulitis. 7. Left lower lobe atelectasis versus infiltrate. 8. Left upper abdominal splenule. 9. Cholecystectomy.
--- NOTE | 2024-06-05 22:09 | W.ED.GENADLT ---
HPI - General Adult General: Chief complaint: Shortness of Breath/Dyspnea Stated complaint: AMS Time Seen by Provider: 06/05/24 18:33 History of Present Illness: This is an addendum to the prior chart. We were getting ready to send the patient back to the long-term and the nurse at the long-term stated that the previous nurse gave the wrong report on this patient. Evidently the patient has been vomiting up fecal material. She has a history of bowel obstructions. I had previously just ordered a chest x-ray because the prior report they were concerned about aspiration. I then added labs as well as abdominal films. The abdominal films reveal constipation with no bowel obstruction. The chest x-ray was read by the radiologist as suspicious for left upper lobe and left lower lobe infiltrates. Her white count is 14. CMP revealed a sodium of 147 of past potassium 5.3. BUN was 50 and creatinine was 1.8. Alk phos is 173. Lipase 914. Patient was then given IV fluids and Levaquin. I discussed the case with Dr. Benedict. We will admit the patient. We added on a CT scan of the abdomen pelvis without contrast. Patient will be sent to the floor shortly. She is stable. Related Data Home Medications Medication Instructions Recorded Confirmed aspirin 81 mg chewable tablet 81 mg PO DAILY@06/17/21 11/12/21 bisacodyl 10 mg rectal suppository 10 mg NC DAILY PRN Constipation 06/17/21 11/12/21 (Dulcolax (bisacodyl)) cyanocobalamin (vitamin B-12) 1,000 mcg PO DAILY@06/17/21 11/12/21 1,000 mcg capsule levetiracetam 500 mg tablet 500 mg PO BID@06/17/21 11/12/21 magnesium hydroxide 400 mg/5 mL 30 ml PO DAILY PRN Constipation 06/17/21 11/12/21 oral suspension (Milk of Magnesia) quetiapine 25 mg tablet 25 mg PO DAILY@06/17/21 11/12/21 sertraline 50 mg tablet 50 mg PO BID 06/17/21 11/12/21 sodium phosphates 19 gram-7 118 ml NC DAILY PRN Constipation 06/17/21 11/12/21 gram/118 mL enema (Fleet Enema) furosemide 20 mg tablet 20 mg PO DAILY 11/04/21 11/12/21 memantine 10 mg tablet 10 mg PO BID 11/04/21 11/12/21 metoprolol tartrate 25 mg tablet 25 mg PO BID 11/04/21 11/12/21 potassium chloride 20 mEq/15 mL 20 meq PO DAILY@09 11/04/21 11/12/21 oral liquid quetiapine 50 mg tablet 50 mg PO BEDTIME 11/04/21 11/12/21 acetaminophen 325 mg tablet 650 mg PO Q6H PRN Pain 11/12/21 11/12/21 (Tylenol) levothyroxine 25 mcg tablet 25 mcg PO DAILY@11/12/21 11/12/21 Allergies Allergy/AdvReac Type Severity Reaction Status Date / Time No Known Allergies Allergy Verified 06/05/24 18:45 [facility] ED PFSH: Medical History (Updated 06/05/24 @ 22:02 by Sam Jensen MD) Unable to determine patient do not resuscitate (DNR) status Aphasia Oropharyngeal dysphagia Multi-infarct dementia Alzheimer disease Social History Smoking and tobacco/nicotine status: never used tobacco/nicotine Course Vital Signs: Vital signs: Vital Signs Temperature 97.0 F L 06/05/24 18:31 Pulse Rate 80 06/05/24 22:00 Respiratory Rate 16 06/05/24 22:00 Blood Pressure 94/60 06/05/24 21:35 Pulse Oximetry 93 06/05/24 22:00 Oxygen Delivery Me thod Room Air 06/05/24 21:30 MDM - General Adult Medical Decision Making This template is an addendum only. See the HPI. Lab Data 06/05/24 21:12 06/05/24 21:12 Radiology Impressions Chest X-Ray 06/05/24 19:10 IMPRESSION: 1. Cardiomegaly. 2. Small left pleural effusion. 3. Left upper lobe and left lower lobe pneumonic infiltrates suspected. 4. Emphysematous changes. Abdomen X-Ray 06/05/24 20:59 IMPRESSION: Moderate to severe constipation without bowel dilation to indicate obstruction. Laboratory Results WBC 13.99 10^3/uL (3.29-11.43) H 06/05/24 21:12 RBC 4.65 10^6/uL (3.85-5.65) 06/05/24 21:12 Hgb 14.80 g/dL (11.27-16.99) 06/05/24 21:12 Hct 46.3 % (36-47) 06/05/24 21:12 MCV 99.6 fl (85-98) H 06/05/24 21:12 MCH 31.8 pg (27-33) 06/05/24 21:12 MCHC 32.0 g/dL (30-55) 06/05/24 21:12 RDW 15.5 % (12.1-15.1) H 06/05/24 21:12 Plt Count 116 10^3/cmm (157-399) L 06/05/24 21:12 MPV 12.5 fL (7.4-10.4) H 06/05/24 21:12 Neut % (Auto) 91.8 % 06/05/24 21:12 Lymph % (Auto) 3.4 % 06/05/24 21:12 [place] % (Auto) 3.7 % 06/05/24 21:12 Eos % (Auto) 0.2 % 06/05/24 21:12 Baso % (Auto) 0.3 % 06/05/24 21:12 Neut # (Auto) 12.85 10^3/uL (1.8-7.7) H 06/05/24 21:12 Lymph # (Auto) 0.5 10^3/uL (0.8-4.8) L 06/05/24 21:12 [place] # (Auto) 0.5 10^3/uL (0.2-0.9) 06/05/24 21:12 Eos # (Auto) 0.0 10^3/uL (0.0-0.8) 06/05/24 21:12 Baso # (Auto) 0.0 10^3/uL (0.0-0.1) 06/05/24 21:12 Nucleated RBC % (auto) 0 % 06/05/24 21: Nucleated RBCs # 0.0 /100WBC 06/05/24 21:12 Sodium 147 mmol/L (136-145) H 06/05/24 21:12 Potassium 5.3 mmol/L (3.5-5.1) H 06/05/24 21:12 Chloride 107 mmol/L (98-107) 06/05/24 21:12 Carbon Dioxide 30 mmol/L (22-29) H 06/05/24 21:12 Anion Gap 15.3 (5-19) 06/05/24 21:12 BUN 50 mg/dL (8-23) H 06/05/24 21:12 Creatinine 1.8 mg/dL (0.5-0.9) H 06/05/24 21:12 GFR Calculation Not Reportable 06/05/24 21:12 Glucose 79 mg/dL (65-115) 06/05/24 21:12 Calculated Osmolality 316 mOsm/kg (285-295) H 06/05/24 21:12 Calcium 8.6 mg/dL (8.5-10.5) 06/05/24 21:12 Total Bilirubin 0.4 mg/dL (0.15-1.2) 06/05/24 21:12 AST 25 U/L (0-32) 06/05/24 21:12 ALT 15 U/L (0-33) 06/05/24 21:12 Alkaline Phosphatase 173 U/L (35-105) H 06/05/24 21:12 Total Protein 7.2 g/dL (6.6-8.7) 06/05/24 21:12 Albumin 3.0 g/dL (3.5-5.2) L 06/05/24 21:12 Globulin 4.2 g/dL (1.3-4.6) 06/05/24 21:12 Lipase 914 U/L (13-60) H 06/05/24 21:12 XR interpretation done by ED provider, pending radiology final review Discharge Plan Discharge Patient Disposition: Home Clinical Impression: Aspiration into airway Qualifiers: Encounter type: initial encounter Qualified Code(s): T17.908A - Unspecified foreign body in respiratory tract, part unspecified causing other injury, initial encounter Condition: Stable Prescriptions: No Action bisacodyl [Dulcolax (bisacodyl)] 10 mg suppository 10 mg NC DAILY PRN (Reason: Constipation) magnesium hydroxide [Milk of Magnesia] 400 mg/5 mL suspension 30 ml PO DAILY PRN (Reason: Constipation) cyanocobalamin (vitamin B-12) 1,000 mcg capsule 1,000 mcg PO DAILY@09 levetiracetam 500 mg tablet 500 mg PO BID@09,18 sertraline 50 mg tablet 50 mg PO BID aspirin 81 mg tablet,chewable 81 mg PO DAILY@09 quetiapine 25 mg tablet 25 mg PO DAILY@09 Fleet Enema 19-7 gram/118 mL enema 118 ml NC DAILY PRN (Reason: Constipation) potassium chloride 20 mEq/15 mL liquid 20 meq PO DAILY@09 furosemide 20 mg tablet 20 mg PO DAILY quetiapine 50 mg tablet 50 mg PO BEDTIME memantine 10 mg tablet 10 mg PO BID metoprolol tartrate 25 mg tablet 25 mg PO BID Tylenol 325 mg Tablet 650 mg PO Q6H PRN (Reason: Pain) levothyroxine 25 mcg tablet 25 mcg PO DAILY@06 Discharge Orders: Discharge ED (Routine); Ordered 06/05/24 Ordered By: Pramod Bain Referrals: Jeovanny Leo DO [Primary Care Provider] - Patient Instructions: Aspiration, Aspiration Precautions (ED) Activity Restrictions/Additional Instructions: If the patient develops fever contact her primary care provider and obtain another chest x-ray. Coding Level of Care Code ED Type Photography Supervisor for Marquita Stern
--- NOTE | 2024-06-05 22:15 | ECG_ITS ---
[employer] Test Date: 2024-06-05 Pat Name: Candace Liu Department: Room: 253 Gender: Female Senior Software Qa Analyst: : 1940 Requested By: Sam Jensen Order Number: [id number] Reading MD: Miguel Painter M.D. Measurements Intervals [place] Rate: 96 P: 0 [place]: 0 QRS: -61 QRSD: 126 T: 106 QT: 359 QTc: 454 Interpretive Statements ATRIAL FIBRILLATION LEFT ANTERIOR FASCICULAR BLOCK [QRS AXIS <= -45, QR IN I, RS IN II] ST DEVIATION AND MODERATE T-WAVE ABNORMALITY, CONSIDER LATERAL ISCHEMIA [-0.1+ mV T-WAVE IN I/aVL/V5/V6] Compared to ECG 11/04/2021 16:09:49 Left anterior fascicular block now present T-wave abnormality now present Possible ischemia now present Left-axis deviation no longer present Myocardial infarct finding no longer present Electronically Signed On 06-12-2024 20:53:57 [employer] by Miguel Painter M.D. [email or web address]
[2024-06-05 22:23] LABS: D Dimer 1.86 ug/mLFEU (0-0.59)
[2024-06-05 22:26] LABS: Lactic Sepsis W/Reflex 2.7 mmol/L (0.5-2.2)
[2024-06-05] MEDS: levofloxacin-dextrose 5 % 500 MG/100 ML PREMIX 100 MG IV (22:30)
[2024-06-05] MEDS: lactated ringers 1,000 ML 999 ML IV ×2 (22:31)
[2024-06-05 22:40] LABS: Triglycerides 73 mg/dL (0-150)
[2024-06-05 23:08] LABS: Bilirubin Urine Negative (Negative); Blood Urine 2+ (Negative); Glucose Urine UA Negative (Normal); Ketones Urine Trace (Negative); Leukocyte Esterase Urine 2+ (Negative); Nitrate Urine Positive (Negative); Protein Urine 1+ (Negative); Specific Gravity, Urine 1.018 (1.005-1.030); Urine Appearance Cloudy (CLEAR); Urine Color Yellow (Yellow)
[2024-06-05 23:13] LABS: Add Urine Microscopic? YES; Bacteria Urine 4+ /hpf; Hyaline Casts Urine 21.48 /lpf; Squamous Epithelial Cell Urine 0-5 /hpf (0-5); Universal Test for UA Present (0)
[2024-06-05 23:28] LABS: WBC Urine TOO NUMEROUS TO CNT /hpf (0-5)
[2024-06-05 23:29] LABS: Add Urine Culture? Yes
[2024-06-06] VITALS (10 sets, daily range): BP systolic 84–102; BP diastolic 52–73; PULSE 61–109; RESP 15–20; TEMP 34.7–36.8; O2SAT 90–100; BMI 33.4
[2024-06-06 00:01] LABS: Reflex Lactate Order REFLEX LACTIC ORDERD
[2024-06-06 00:54] LABS: Basophils % 0.2 %; Eosinophils % 0.1 %; Hematocrit 41.7 % (36-47); Lymphocytes # 0.5 10^3/uL (0.8-4.8); Lymphocytes % 3.4 %; Mean Corpuscular HGB Conc 31.4 g/dL (30-55); Mean Corpuscular Hemoglobin 31.8 pg (27-33); Mean Corpuscular Volume 101.2 fl (85-98); Mean Platelet Volume 13.6 fL (7.4-10.4); Monocytes # 0.6 10^3/uL (0.2-0.9); Monocytes % 4.3 %; Neutrophils # 12.77 10^3/uL (1.8-7.7); Neutrophils % 91.4 %; Nucleated Red Blood Cells % 0 %; Platelet Count 105 10^3/cmm (157-399); Red Blood Count 4.12 10^6/uL (3.85-5.65); Red Cell Distribution Width 15.6 % (12.1-15.1); White Blood Count 13.98 10^3/uL (3.29-11.43)
[2024-06-06 00:56] LABS: Slide Review Slide Review Perform
[2024-06-06 01:01] LABS: Lactic Acid level (Lactate) 3.4 mmol/L (0.5-2.2)
[2024-06-06 01:02] LABS: Alanine Aminotransferase 13 U/L (0-33); Albumin Level 2.6 g/dL (3.5-5.2); Alkaline Phosphatase 145 U/L (35-105); Anion Gap 14.6 (5-19); Aspartate Amino Transferase 23 U/L (0-32); Blood Urea Nitrogen 43 mg/dL (8-23); Carbon Dioxide 26 mmol/L (22-29); Chloride 111 mmol/L (98-107); Creatinine Clr Calc Pharmacy 28.6048; Globulin 3.3 g/dL (1.3-4.6); Glucose 66 mg/dL (65-115); Osmolality Calculated 313 mOsm/kg (285-295); Potassium 4.6 mmol/L (3.5-5.1); Sodium 147 mmol/L (136-145); Total Bilirubin 0.4 mg/dL (0.15-1.2); Total Protein 5.9 g/dL (6.6-8.7)
[2024-06-06 01:08] LABS: Estmated Average Glucose 105; Hemoglobin A1C 5.3 % (4.0-6.0)
[2024-06-06] MEDS: lactulose oral liq 20 gm/30 mL UDC 10 GM PO (01:14)
[2024-06-06] MEDS: piperacillin-tazobactam 3.375 GM in sodium chloride 0.9% (plus) 50 ML IV ×3 (01:14→17:56)
[2024-06-06] MEDS: dextrose 5%-lactated ringers 1,000 ML 30 ML IV ×2 (01:15→18:32)
--- NOTE | 2024-06-06 01:42 | USCV_ITS ---
Candace Liu Age: 84 Gender: F : 1940 Exam Date: 06/06/2024 09:58 Ordering Phys: Sam Jensen MD Technologist: Exam Location: [facility] [place] Indication: bed stasis PROCEDURES: Venous duplex imaging was performed in bilateral lower extremities. The venous duplex Doppler examination of both lower extremities was performed in the standard fashion. The following venous structures were evaluated: common femoral vein, profunda vein, proximal portion of the greater saphenous vein, superficial femoral vein, and the popliteal vein. In addition, the posterior tibial veins were evaluated. FINDINGS: Normal 2-D Doppler and augmentation and compressibility throughout the lower extremity venous structures. Additional imaging through the proximal calf veins also reveals no thrombus. Limited evaluation of the greater saphenous vein is patent with no thrombus. CONCLUSIONS No DVT bilateral lower extremities. Dr. Kassidy Camacho DO (Electronically Signed) Final Date: 06 June 2024 14:05 S
[2024-06-06] MEDS: heparin 5,000 unit/mL INJ 1 mL 5000 UNIT SUBCUT ×2 (05:50→17:55)
[2024-06-06] MEDS: blistex lip oint 7 gm Tube 1 APPLIC TOPICAL (05:50)
[2024-06-06] MEDS: pantoprazole 40 mg SDV IVP ×2 (08:33→17:55)
[2024-06-06 09:12] LABS: Anion Gap 11.3 (5-19); Blood Urea Nitrogen 44 mg/dL (8-23); Carbon Dioxide 26 mmol/L (22-29); Chloride 113 mmol/L (98-107); Creatinine Clr Calc Pharmacy 28.4208; Glucose 85 mg/dL (65-115); Osmolality Calculated 312 mOsm/kg (285-295); Potassium 4.3 mmol/L (3.5-5.1); Sodium 146 mmol/L (136-145)
--- NOTE | 2024-06-06 11:16 | P.PN_ITS ---
Subjective 2 Subjective: seen today pt is confused appears comfortable labs reviewed sodium 147 had 2 large BM Vitals/I&O/Wt Last Vital Signs Temp 97.7 F 06/06/24 08:00 Pulse 85 06/06/24 08:00 Resp 18 06/06/24 08:00 BP 90/53 06/06/24 08:00 Pulse Ox 93 06/06/24 08:00 O2 Del Method Room Air 06/06/24 08:00 06/05/24 06/06/24 06/06/24 22:59 06:59 14:59 Intake Total 0 / 0 350 / 350 Output Total 450 / 450 Balance 0 / 0 -100 / -100 Weight last 48 hrs Weight 89.584 kg Weight 91.036 kg Weight 90.718 kg Physical Exam 2 Narrative: laying in bed, mumbling, not alert, has eyes closed but mumbles when asked to open eyes chest cta b/l abdomen soft, nontender, does not grimace to palpation. S1, S2 Currently on room air Neuroexam is limited Wearing diaper Urinary Catheter Management: Banks: Cath Placed During This Visit: yes Reason for Continuing Indwelling Catheter: Other Urinary Catheter Date of Insertion: 06/05/24 Urinary Catheter Time of Insertion: 22:57 Data 06/06/24 00:36 06/06/24 08:39 Micro: Microbiology 06/05/24 22:20 Blood Culture - Preliminary Blood SPECIMEN COLLECTED 06/05/24 22:18 Blood Culture - Preliminary Blood SPECIMEN COLLECTED A&P Assessment and plan (1) Aspiration into airway: Qualifiers: Encounter type: initial encounter Qualified Code(s): T17.908A - Unspecified foreign body in respiratory tract, part unspecified causing other injury, initial encounter (2) Hypernatremia: (3) Constipation: (4) Oropharyngeal dysphagia: (5) Acute kidney injury superimposed on chronic kidney disease: (6) Hyperkalemia: (7) Aphasia: (8) Unable to determine patient do not resuscitate (DNR) status: Plan Hypernatremia Patient has not been able to eat much She has oropharyngeal dysphagia gets pur?ed diet I will request another speech therapy evaluation for concern of aspiration pneumonitis Okay for gentle fluid hydration Hyperkalemia with acute on chronic kidney disease Monitor urine output correlate with creatinine with IV fluid hydration overnight Aspiration pneumonia Will put patient on Zosyn SIRS criteria met with tachypnea tachycardia leukocytosis, will request lactic acid, she does have lower extremity edema will request D-dimer, will give her 30 mL/kg fluid bolus Request blood culture, Source seem to be aspiration Constipation with abdominal distention Rule out pancreatitis, lipase is 900, will also request triglyceride, hemoglobin A1c, requested CT abdomen pelvis without contrast Will give her lactulose No active sign obstruction as per the KUB Will also give her 1 dose of enema Add morphine DNR/DNI Pur?ed diet DVT prophylaxis: Heparin Dementia vascular, global aphasia 06/06/2024 - sodium is 147, - pt had large bm this am - aspiration risk - speech evaluation ordered - continue zosyn - UTI: zosyn will cover - d-dimer 1.89, cr 1.86. age adjusted dimer: 0.85: VTE possible - b/l le dopplers pending - pt on room air, do not suspect PE at this time clinically - increase fluids to 75 cc/hr - continue npo status 2/2 to pancreatitis Attestations 2 Medical Necessity Statement*: More than 2 midnights anticipated Diagnoses Aspiration into airway T17.908A Encounter type: initial encounter Hypernatremia E87.0 Constipation K59.00 Oropharyngeal dysphagia R13.12 Acute kidney injury superimposed on chronic kidney disease N17.9; N18.9 Hyperkalemia E87.5 Aphasia R47.01 Unable to determine patient do not resuscitate (DNR) status Z78.9
[2024-06-07] VITALS (10 sets, daily range): BP systolic 82–113; BP diastolic 52–82; PULSE 73–106; RESP 16–28; TEMP 36.6–37.2; O2SAT 92–96
[2024-06-07] MEDS: piperacillin-tazobactam 3.375 GM in sodium chloride 0.9% (plus) 50 ML IV ×3 (00:07→17:31)
[2024-06-07 05:02] LABS: Basophils % 0.1 %; Eosinophils % 0.2 %; Lymphocytes # 0.7 10^3/uL (0.8-4.8); Lymphocytes % 4.4 %; Mean Corpuscular HGB Conc 31.6 g/dL (30-55); Mean Corpuscular Hemoglobin 31.9 pg (27-33); Mean Corpuscular Volume 101.1 fl (85-98); Monocytes # 0.9 10^3/uL (0.2-0.9); Neutrophils # 13.09 10^3/uL (1.8-7.7); Neutrophils % 88.6 %; Nucleated Red Blood Cells % 0 %; Platelet Count 98 10^3/cmm (157-399); Red Blood Count 3.76 10^6/uL (3.85-5.65); Red Cell Distribution Width 15.9 % (12.1-15.1); White Blood Count 14.77 10^3/uL (3.29-11.43)
[2024-06-07 05:27] LABS: Alanine Aminotransferase 13 U/L (0-33); Albumin Level 2.3 g/dL (3.5-5.2); Alkaline Phosphatase 136 U/L (35-105); Anion Gap 11.2 (5-19); Aspartate Amino Transferase 30 U/L (0-32); Blood Urea Nitrogen 36 mg/dL (8-23); Calcium 7.9 mg/dL (8.5-10.5); Carbon Dioxide 26 mmol/L (22-29); Chloride 118 mmol/L (98-107); Creatinine Clr Calc Pharmacy 27.5529; Globulin 3.2 g/dL (1.3-4.6); Glucose 89 mg/dL (65-115); Magnesium 1.9 mg/dL (1.7-2.3); Osmolality Calculated 320 mOsm/kg (285-295); Potassium 4.2 mmol/L (3.5-5.1); Sodium 151 mmol/L (136-145); Total Bilirubin 0.7 mg/dL (0.15-1.2); Total Protein 5.5 g/dL (6.6-8.7)
[2024-06-07] MEDS: heparin 5,000 unit/mL INJ 1 mL 5000 UNIT SUBCUT ×2 (06:02→17:32)
[2024-06-07] MEDS: pantoprazole 40 mg SDV IVP ×2 (09:42→17:32)
[2024-06-07] MEDS: dextrose 5% 1,000 ML 75 ML IV ×2 (09:43→21:09)
--- NOTE | 2024-06-07 10:40 | P.PN_ITS ---
Subjective 2 Subjective: Seen this morning. Unable to clear oral secretions being suctioned by nursing staff at this time. Continues to be confused. Did have a bowel movement in last 24 hours White count 14.77 Sodium 151, creatinine 1.7. Urine cultures pending at this time. Vitals/I&O/Wt Last Vital Signs Temp 98.5 F 06/07/24 08:00 Pulse 89 06/07/24 08:41 Resp 16 06/07/24 08:41 BP 102/64 06/07/24 08:00 Pulse Ox 94 06/07/24 08:41 O2 Del Method Room Air 06/07/24 08:41 06/06/24 06/07/24 06/07/24 22:59 06:59 14:59 Intake Total 542 / 592 50 / 642 Output Total 550 / 550 150 / 700 Balance - -100 / -58 Weight last 48 hrs Weight 94.846 kg Weight 89.584 kg Weight 91.036 kg Weight 90.718 kg Physical Exam 2 Narrative: laying in bed, mumbling, has eyes closed but mumbles when asked to open eyes, no change in mentation compared to yesterday. chest cta b/l abdomen soft, nontender, does not grimace to palpation. S1, S2 Currently on room air Neuroexam is limited Wearing diaper Urinary Catheter Management: Banks: Cath Placed During This Visit: yes Reason for Continuing Indwelling Catheter: Other Urinary Catheter Date of Insertion: 06/05/24 Urinary Catheter Time of Insertion: 22:57 Data 06/07/24 04:36 06/07/24 04:36 Micro: Microbiology 06/05/24 22:20 Blood Culture - Preliminary Blood NEGATIVE TO DATE 06/05/24 22:18 Blood Culture - Preliminary Blood NEGATIVE TO DATE A&P Assessment and plan (1) Aspiration into airway: Qualifiers: Encounter type: initial encounter Qualified Code(s): T17.908A - Unspecified foreign body in respiratory tract, part unspecified causing other injury, initial encounter (2) Hypernatremia: (3) Constipation: (4) Oropharyngeal dysphagia: (5) Acute kidney injury superimposed on chronic kidney disease: (6) Hyperkalemia: (7) Aphasia: (8) Unable to determine patient do not resuscitate (DNR) status: Plan Hypernatremia Patient has not been able to eat much She has oropharyngeal dysphagia gets pur?ed diet I will request another speech therapy evaluation for concern of aspiration pneumonitis Okay for gentle fluid hydration Hyperkalemia with acute on chronic kidney disease Monitor urine output correlate with creatinine with IV fluid hydration overnight Aspiration pneumonia Will put patient on Zosyn SIRS criteria met with tachypnea tachycardia leukocytosis, will request lactic acid, she does have lower extremity edema will request D-dimer, will give her 30 mL/kg fluid bolus Request blood culture, Source seem to be aspiration Constipation with abdominal distention Rule out pancreatitis, lipase is 900, will also request triglyceride, hemoglobin A1c, requested CT abdomen pelvis without contrast Will give her lactulose No active sign obstruction as per the KUB Will also give her 1 dose of enema Add morphine DNR/DNI Pur?ed diet DVT prophylaxis: Heparin Dementia vascular, global aphasia 06/07/2024 - sodium is 151, switch to D5 water at 75 cc/h ? Patient had another bowel movement in the last 24 hours. ? Aspiration risk ? Speech evaluation has been ordered. Recommend to keep n.p.o. for now as per speech. ? Urine cultures pending at this time. Continue with Zosyn. ? Zosyn to cover aspiration pneumonia and UTI. ? Patient was on room air and is not tachycardic. Low suspicion of PE. Age- adjusted D-dimer 0.85 ED possible however secondary to elevated creatinine 1.7 I will defer that for now. Bilateral venous Dopplers are negative for DVT. ? Continue to maintain n.p.o. status ? Will check lipase ? Patient is in a memory care unit at nursing facility secondary to advanced dementia. I have been told by nursing staff that this is patient's baseline. ? White count 14,000. Continue to check CBC CMP daily. ? I would like to hospitalize patient at least until urine cultures return. Hopefully mentation will improve where she could be able to eat. Continue to work with speech therapy. Attestations 2 Medical Necessity Statement*: More than 2 midnights anticipated Sodium is 151 and patient is n.p.o. secondary to aspiration risk. Continuing to treat for aspiration pneumonia and UTI. Patient is not stable to discharge medically. Diagnoses Aspiration into airway T17.908A Encounter type: initial encounter Hypernatremia E87.0 Constipation K59.00 Oropharyngeal dysphagia R13.12 Acute kidney injury superimposed on chronic kidney disease N17.9; N18.9 Hyperkalemia E87.5 Aphasia R47.01 Unable to determine patient do not resuscitate (DNR) status Z78.9
--- NOTE | 2024-06-07 10:47 | XRR_ITS ---
PROCEDURE INFORMATION: Exam: XR Abdomen Exam date and time: 06/07/2024 12:27 PM Age: 84 years old Clinical indication: Abdominal pain; Generalized; Additional info: Follow-up TECHNIQUE: Imaging protocol: Radiologic exam of the abdomen. Views: Frontal supine view of the abdomen. 1 View. COMPARISON: CT abdomen pelvis con [id number] 06/05/2024 10:34 PM FINDINGS: Gastrointestinal tract: Bowel gas pattern is unremarkable. No sign of obstruction. There is stool distension of the distal colon and rectum. Intraperitoneal space: No free air. Bones/joints: There is moderate degenerative disease in the lumbar spine. There is moderate degenerative disease of both hips. XR/XR KUB portable [id number] IMPRESSION: 1. No sign of bowel obstruction. 2. Stool distended distal colon and rectum. This finding would support a clinical diagnosis of constipation.
[2024-06-08] VITALS (8 sets, daily range): BP systolic 94–114; BP diastolic 50–66; PULSE 78–94; RESP 18–20; TEMP 36.4–37.4; O2SAT 93–96
[2024-06-08] MEDS: piperacillin-tazobactam 3.375 GM in sodium chloride 0.9% (plus) 50 ML IV ×3 (00:30→18:01)
[2024-06-08 05:06] LABS: Basophils % 0.2 %; Eosinophils # 0.1 10^3/uL (0.0-0.8); Lymphocytes # 0.8 10^3/uL (0.8-4.8); Lymphocytes % 7.6 %; Mean Corpuscular HGB Conc 31.7 g/dL (30-55); Mean Corpuscular Hemoglobin 32.2 pg (27-33); Mean Corpuscular Volume 101.4 fl (85-98); Mean Platelet Volume 12.4 fL (7.4-10.4); Monocytes # 0.7 10^3/uL (0.2-0.9); Neutrophils # 8.25 10^3/uL (1.8-7.7); Neutrophils % 83.1 %; Nucleated Red Blood Cells % 0 %; Platelet Count 93 10^3/cmm (157-399); Red Blood Count 3.45 10^6/uL (3.85-5.65); Red Cell Distribution Width 15.9 % (12.1-15.1); White Blood Count 9.94 10^3/uL (3.29-11.43)
[2024-06-08 05:26] LABS: Lipase 121 U/L (13-60)
[2024-06-08 05:29] LABS: Alanine Aminotransferase 13 U/L (0-33); Albumin Level 2.2 g/dL (3.5-5.2); Alkaline Phosphatase 124 U/L (35-105); Anion Gap 11.6 (5-19); Aspartate Amino Transferase 32 U/L (0-32); Blood Urea Nitrogen 33 mg/dL (8-23); Calcium 7.5 mg/dL (8.5-10.5); Carbon Dioxide 23 mmol/L (22-29); Chloride 114 mmol/L (98-107); Creatinine Clr Calc Pharmacy 27.5529; Globulin 2.5 g/dL (1.3-4.6); Glucose 93 mg/dL (65-115); Osmolality Calculated 307 mOsm/kg (285-295); Potassium 3.6 mmol/L (3.5-5.1); Sodium 145 mmol/L (136-145); Total Bilirubin 0.8 mg/dL (0.15-1.2); Total Protein 4.7 g/dL (6.6-8.7)
[2024-06-08] MEDS: heparin 5,000 unit/mL INJ 1 mL 5000 UNIT SUBCUT ×2 (08:31→21:26)
[2024-06-08] MEDS: pantoprazole 40 mg SDV IVP ×2 (08:31→18:02)
[2024-06-08] MEDS: dextrose 5% 1,000 ML 75 ML IV (11:11)
--- NOTE | 2024-06-08 11:42 | P.PN_ITS ---
Subjective 2 Subjective: Patient is still confused and mumbling during the encounter. Does not have audible gurgling sounds today. She was recently suctioned by nursing staff. Did see speech therapy yesterday and the day before however was a significant aspiration risk and was recommended to be n.p.o. Saw speech therapy again today and did have better performance of yesterday. She was able to consume pudding and moderately thick liquids with occasional throat clearing. No increase in wet vocal quality noted after intake. Urine culture has resulted. Sensitive to beta-lactam. Lipase is trended down to 126. Vitals/I&O/Wt Last Vital Signs Temp 98.6 F 06/08/24 07:41 Pulse 94 06/08/24 08:47 Resp 18 06/08/24 08:47 BP 101/60 06/08/24 07:41 Pulse Ox 93 06/08/24 08:47 O2 Del Method Room Air 06/08/24 08:47 06/07/24 06/08/24 06/08/24 22:59 06:59 14:59 Intake Total 907.5 / 957.5 50 / 1007.5 1000 / 1000 Output Total 300 / 300 Balance 907.5 / 957.5 -250 / 707.5 1000 / 1000 Weight last 48 hrs Weight 94.829 kg Weight 94.846 kg Physical Exam 2 Narrative: laying in bed, mumbling, has eyes closed but mumbles when asked to open eyes, no change in mentation compared to yesterday. I believe patient may be at baseline. chest cta b/l abdomen soft, nontender, does not grimace to palpation. S1, S2 Currently on room air Neuroexam is limited Wearing diaper Urinary Catheter Management: Banks: Cath Placed During This Visit: yes Reason for Continuing Indwelling Catheter: Other Urinary Catheter Date of Insertion: 06/05/24 Urinary Catheter Time of Insertion: 22:57 Data 06/08/24 04:27 06/08/24 04:27 Micro: Microbiology 06/05/24 22:54 Urine Culture - Final Urine,Clean Catch Escherichia coli A&P Assessment and plan (1) Aspiration into airway: Qualifiers: Encounter type: initial encounter Qualified Code(s): T17.908A - Unspecified foreign body in respiratory tract, part unspecified causing other injury, initial encounter (2) Hypernatremia: (3) Constipation: (4) Oropharyngeal dysphagia: (5) Acute kidney injury superimposed on chronic kidney disease: (6) Hyperkalemia: (7) Aphasia: (8) Unable to determine patient do not resuscitate (DNR) status: Plan Hypernatremia Patient has not been able to eat much She has oropharyngeal dysphagia gets pur?ed diet I will request another speech therapy evaluation for concern of aspiration pneumonitis Okay for gentle fluid hydration Hyperkalemia with acute on chronic kidney disease Monitor urine output correlate with creatinine with IV fluid hydration overnight Aspiration pneumonia Will put patient on Zosyn SIRS criteria met with tachypnea tachycardia leukocytosis, will request lactic acid, she does have lower extremity edema will request D-dimer, will give her 30 mL/kg fluid bolus Request blood culture, Source seem to be aspiration Constipation with abdominal distention Rule out pancreatitis, lipase is 900, will also request triglyceride, hemoglobin A1c, requested CT abdomen pelvis without contrast Will give her lactulose No active sign obstruction as per the KUB Will also give her 1 dose of enema Add morphine DNR/DNI Pur?ed diet DVT prophylaxis: Heparin Dementia vascular, global aphasia 06/08/2024 -Sodium has normalized. He may stop IV fluids today. ? Seen speech therapy this morning. May restart a diet. Patient still has an aspiration risk however is able to eat by mouth at this time. ?Urine culture shows pansensitive E. coli with resistance to fluoroquinolones. Will stop Zosyn and placed on ceftriaxone daily. ? Zosyn to cover aspiration pneumonia and UTI. ? Patient was on room air and is not tachycardic. Low suspicion of PE. Age- adjusted D-dimer 0.85 ED possible however secondary to elevated creatinine 1.7 I will defer that for now. Bilateral venous Dopplers are negative for DVT. ?Lipase is trended down. ? Patient is in a memory care unit at nursing facility secondary to advanced dementia. I have been told by nursing staff that this is patient's baseline. ? White count has normalized.. Continue to check CBC CMP daily. ? I will call patient's family and update them over the phone. If patient remains stable in next 24 hours may be able to discharge back to nursing facility. Attestations 2 Medical Necessity Statement*: Improving. Diagnoses Aspiration into airway T17.908A Encounter type: initial encounter Hypernatremia E87.0 Constipation K59.00 Oropharyngeal dysphagia R13.12 Acute kidney injury superimposed on chronic kidney disease N17.9; N18.9 Hyperkalemia E87.5 Aphasia R47.01 Unable to determine patient do not resuscitate (DNR) status Z78.9
[2024-06-09] VITALS (9 sets, daily range): BP systolic 102–121; BP diastolic 56–68; PULSE 75–95; RESP 16–20; TEMP 36.6–37.6; O2SAT 92–96
[2024-06-09] MEDS: piperacillin-tazobactam 3.375 GM in sodium chloride 0.9% (plus) 50 ML IV ×3 (01:13→19:55)
[2024-06-09 05:04] LABS: Basophils % 0.3 %; Eosinophils # 0.2 10^3/uL (0.0-0.8); Eosinophils % 2.6 %; Hematocrit 34.2 % (36-47); Lymphocytes # 0.9 10^3/uL (0.8-4.8); Mean Corpuscular Hemoglobin 31.5 pg (27-33); Mean Corpuscular Volume 101.5 fl (85-98); Mean Platelet Volume 11.8 fL (7.4-10.4); Monocytes # 0.6 10^3/uL (0.2-0.9); Monocytes % 8.2 %; Neutrophils % 75.3 %; Nucleated Red Blood Cells % 0 %; Platelet Count 94 10^3/cmm (157-399); Red Blood Count 3.37 10^6/uL (3.85-5.65); Red Cell Distribution Width 15.4 % (12.1-15.1); White Blood Count 7.69 10^3/uL (3.29-11.43)
[2024-06-09 05:32] LABS: Blood Urea Nitrogen 29 mg/dL (8-23); Calcium 7.5 mg/dL (8.5-10.5); Carbon Dioxide 22 mmol/L (22-29); Chloride 113 mmol/L (98-107); Creatinine Clr Calc Pharmacy 27.3935; Glucose 87 mg/dL (65-115); Osmolality Calculated 303 mOsm/kg (285-295); Sodium 144 mmol/L (136-145)
[2024-06-09] MEDS: pantoprazole 40 mg SDV IVP ×2 (10:56→17:51)
[2024-06-09] MEDS: heparin 5,000 unit/mL INJ 1 mL 5000 UNIT SUBCUT ×2 (11:04→19:57)
--- NOTE | 2024-06-09 16:07 | P.PN_ITS ---
Subjective 2 Subjective: Chart reviewed. No overall improvement. Seen by speech therapy, failed swallow eval, high risk for aspiration. Continuing to be NPO. Medications: Reviewed: Yes Vitals/I&O/Wt Last Vital Signs Temp 97.8 F 06/09/24 15:25 Pulse 79 06/09/24 15:25 Resp 16 06/09/24 15:25 BP 106/63 06/09/24 15:25 Pulse Ox 94 06/09/24 15:25 O2 Del Method Room Air 06/09/24 15:25 06/09/24 06/09/24 06/09/24 06:59 14:59 22:59 Intake Total 50 / 5095 Output Total 250 / 775 Balance -200 / 4320 Weight last 48 hrs Weight 93.803 kg Weight 94.829 kg Physical Exam 2 Narrative: General: No acute distress, AO x1, nonverbal HEENT: PERRLA, pupils bilaterally equal and reactive, pallors not present Chest: Scattered crackles to auscultation bilaterally CVS: S1-S2 regular, no murmurs, no tachycardia, no gallops, no rubs Abdomen: Soft, nontender, no organomegaly, bowel sounds present Neuro: Does not follow any commands Urinary Catheter Management: Banks: Cath Placed During This Visit: yes Reason for Continuing Indwelling Catheter: Acute Urinary Retention or Obstruction Urinary Catheter Date of Insertion: 06/05/24 Urinary Catheter Time of Insertion: 22:57 Data 06/09/24 04:49 06/09/24 04:49 A&P Assessment and plan (1) Aspiration into airway: Qualifiers: Encounter type: initial encounter Qualified Code(s): T17.908A - Unspecified foreign body in respiratory tract, part unspecified causing other injury, initial encounter (2) Hypernatremia: (3) Constipation: (4) Oropharyngeal dysphagia: (5) Acute kidney injury superimposed on chronic kidney disease: (6) Hyperkalemia: (7) Aphasia: (8) Unable to determine patient do not resuscitate (DNR) status: Plan Hypernatremia Patient has not been able to eat much She has oropharyngeal dysphagia gets pur?ed diet I will request another speech therapy evaluation for concern of aspiration pneumonitis Okay for gentle fluid hydration Hyperkalemia with acute on chronic kidney disease Monitor urine output correlate with creatinine with IV fluid hydration overnight Aspiration pneumonia Will put patient on Zosyn SIRS criteria met with tachypnea tachycardia leukocytosis, will request lactic acid, she does have lower extremity edema will request D-dimer, will give her 30 mL/kg fluid bolus Request blood culture, Source seem to be aspiration Constipation with abdominal distention Rule out pancreatitis, lipase is 900, will also request triglyceride, hemoglobin A1c, requested CT abdomen pelvis without contrast Will give her lactulose No active sign obstruction as per the KUB Will also give her 1 dose of enema Add morphine DNR/DNI Pur?ed diet DVT prophylaxis: Heparin Dementia vascular, global aphasia 06/08/2024 -Sodium has normalized. He may stop IV fluids today. ? Seen speech therapy this morning. May restart a diet. Patient still has an aspiration risk however is able to eat by mouth at this time. ?Urine culture shows pansensitive E. coli with resistance to fluoroquinolones. Will stop Zosyn and placed on ceftriaxone daily. ? Zosyn to cover aspiration pneumonia and UTI. ? Patient was on room air and is not tachycardic. Low suspicion of PE. Age- adjusted D-dimer 0.85 ED possible however secondary to elevated creatinine 1.7 I will defer that for now. Bilateral venous Dopplers are negative for DVT. ?Lipase is trended down. ? Patient is in a memory care unit at nursing facility secondary to advanced dementia. I have been told by nursing staff that this is patient's baseline. ? White count has normalized.. Continue to check CBC CMP daily. ? I will call patient's family and update them over the phone. If patient remains stable in next 24 hours may be able to discharge back to nursing facility. 06/09/2024. 84-year-old lady with a past medical history of A-fib, osteopenia, vascular dementia, breast cancer, resident of [facility] in the memory unit. Presented from the correction on June 05, 2024 due to complaint of brown- colored emesis with concern for aspiration. Patient has been unable to provide any history. Chest x-ray showed left upper lobe and left lower lobe pneumonic infiltrate. CT of the abdomen and pelvis showed mild peripancreatic edema, lipase was 900, concerning for pancreatitis. Liver function test were within normal range. Mildly elevated alkaline phosphatase at 124. She received treatment with IV piperacillin/tazobactam and IV fluids. Lipase improved to 121. She underwent speech therapy evaluation which showed significant wet vocal quality, patient was not able to clear her throat or swallow on command. She had difficulty with chips and moderately thick liquid intake. She underwent a reassessment today and had a very wet and gurgly vocal quality when attempting to talk. She did not swallow on command. Patient was coughing on her own secretions. Therefore feeding has not been attempted and n.p.o. status has been continued today. Discussed with patient's daughter Maddy about further goals of care. Given her significant aspiration risk, 1 way to proceed may be to perform a PEG tube, Maddy does not know if this was compatible with her mother's last known wishes for herself. While a PEG tube may be able to minimize risk of food aspiration, discussed with the daughter that she still remains at significant risk of aspiration of upper airway secretions. This could in turn resulted in recurrent bouts of pneumonia. There has been discussion regarding hospice with comfort feeding with the daughter on previous days. This was again approached. Maddy states that she would like to talk to her father about making the final decisions in this regard. It appears patient's has been unwell recently getting chemotherapy and they would like a little more time over the next 24 hours to discuss transitioning patient to hospice with her . In the interim they would like to learn more about hospice services and request that we send a referral today so that the family can make a well-informed decision. We will continue IV antibiotics today. Continue n.p.o. status until goals of cares can be established. Return to correction in the next 24 hours if transitioning to hospice. This documentation was created by [employer] sole leveler machine software. Every effort was made to ensure accuracy of sole leveler machine. Any obvious errors or omissions should be clarified with the author of the document. Attestations 2 Medical Necessity Statement*: Goals of care discussion, continuing IV antibiotics, possible transition to hospice pending final family decision. Coding Level of Care Code Acute Code for Chg Fwd High Time for a total of 45 minutes, includes reviewing past or interval history, examining/interviewing patient, placing orders, counseling patient/family/other support, updating patient/family/other support, discussing plan of care with staff, communicating with other healthcare providers, documenting encounter and coordinating care Other Coding Information goals of care discussion Diagnoses Aspiration into airway T17.908A Encounter type: initial encounter Hypernatremia E87.0 Constipation K59.00 Oropharyngeal dysphagia R13.12 Acute kidney injury superimposed on chronic kidney disease N17.9; N18.9 Hyperkalemia E87.5 Aphasia R47.01 Unable to determine patient do not resuscitate (DNR) status Z78.9
[2024-06-10] VITALS (8 sets, daily range): BP systolic 96–119; BP diastolic 62–76; PULSE 78–104; RESP 15–16; TEMP 36.6–36.9; O2SAT 91–98
[2024-06-10] MEDS: piperacillin-tazobactam 3.375 GM in sodium chloride 0.9% (plus) 50 ML IV ×2 (04:16→11:39)
[2024-06-10] MEDS: heparin 5,000 unit/mL INJ 1 mL 5000 UNIT SUBCUT (08:38)
[2024-06-10] MEDS: polyethylene glycol 3350 Pkt 17 gm PO (08:38)
[2024-06-10] MEDS: pantoprazole 40 mg SDV IVP (08:38)
[2024-06-10] MEDS: sennosides-docusate Tablet 1 TAB PO (08:38)
--- NOTE | 2024-06-10 12:58 | PM.DCS ---
Discharge Providers Date of Admission: 06/05/24 22:10 Date of Discharge: June 10, 2024 Attending Provider at Admission: Sam Jensen MD Attending Provider at Discharge: Sakshi Hernandez MD Primary Care Provider: Jeovanny Leo DO Diagnoses at Discharge Discharge Diagnosis (1) Aspiration into airway: Status: Acute Qualifiers: Encounter type: initial encounter Qualified Code(s): T17.908A - Unspecified foreign body in respiratory tract, part unspecified causing other injury, initial encounter (2) Hypernatremia: Status: Acute (3) Constipation: Status: Acute (4) Oropharyngeal dysphagia: Status: Acute (5) Acute kidney injury superimposed on chronic kidney disease: Status: Acute (6) Hyperkalemia: Status: Acute (7) Aphasia: Status: Acute (8) Unable to determine patient do not resuscitate (DNR) status: Status: Acute Reason for Visit Reason for Visit: [facility] Hospital Course Hospital Course 84-year-old lady with a past medical history of A-fib, osteopenia, vascular dementia, breast cancer, resident of [facility] in the memory unit. Presented from the assisted on June 05, 2024 due to complaint of brown-colored emesis with concern for aspiration. Patient has been unable to provide any history. Chest x-ray showed left upper lobe and left lower lobe pneumonic infiltrate. CT of the abdomen and pelvis showed mild peripancreatic edema, lipase was 900, concerning for pancreatitis. Liver function test were within normal range. Mildly elevated alkaline phosphatase at 124. She received treatment with IV piperacillin/tazobactam and IV fluids. Lipase improved to 121. She underwent speech therapy evaluation which showed significant wet vocal quality, patient was not able to clear her throat or swallow on command. She had difficulty with chips and moderately thick liquid intake. She underwent a reassessment today and had a very wet and gurgly vocal quality when attempting to talk. She did not swallow on command. Patient was coughing on her own secretions. Therefore feeding has not been attempted and n.p.o. status was continued. Discussed with patient's daughter Maddy about further goals of care. Given her significant aspiration risk, option to perform a PEG tube was discussed, however in keeping with patient's last known wishes and discussion between family members, they decided to pursue hospice with comfort feeding instead. She is being discharged today with hospice services to [facility] Physical Exam Narrative: General: No acute distress, AO x1 HEENT: PERRLA, pupils bilaterally equal and reactive, pallors not present Chest: Normal vesicular breath sounds, no added sounds, equal good air entry bilaterally CVS: S1-S2 regular, no murmurs, no tachycardia, no gallops, no rubs Abdomen: Soft, nontender, no organomegaly, bowel sounds present Neuro: non verbal, does not follow commands , advanced dementia Urinary Catheter Management: Banks: Cath Placed During This Visit: yes Reason for Continuing Indwelling Catheter: Other Urinary Catheter Date of Insertion: 06/05/24 Urinary Catheter Time of Insertion: 22:57 Discharge Data Studies Completed and Pending Completed Studies During Hospitalization Category Date Time Status CT abdomen pelvis wo con [id number] Stat Cat Scan 06/05/24 22:08 Completed CXRP [XR chest 1V portable [id number]] Stat Exams 06/05/24 19:10 Completed XR KUB portable [id number] Routine Exams 06/07/24 10:47 Completed XR abdomen min 2V [id number] Stat Exams 06/05/24 20:59 [place] [id number] Routine Ultrasound 06/06/24 01:42 Completed Pending at discharge Category Date Time Status Blood Culture Stat Lab 06/05/24 22:20 Results SARS Covid-2 Antigen Routine Lab 06/10/24 12:06 Ordered Radiology Impressions Chest X-Ray 06/05/24 19:10 IMPRESSION: 1. Cardiomegaly. 2. Small left pleural effusion. 3. Left upper lobe and left lower lobe pneumonic infiltrates suspected. 4. Emphysematous changes. Abdomen X-Ray 06/05/24 20:59 IMPRESSION: Moderate to severe constipation without bowel dilation to indicate obstruction. Abdomen/Pelvis CT 06/05/24 22:08 IMPRESSION: 1. Mild peripancreatic edema, please correlate for pancreatitis. 2. Right inguinal 11 mm nonspecific lymph node. 3. Emphysematous changes. 4. Bibasilar atelectasis versus minimal infiltrate. 5. Moderate constipation. 6. Diverticulosis without diverticulitis. 7. Left lower lobe atelectasis versus infiltrate. 8. Left upper abdominal splenule. 9. Cholecystectomy. KUB X-Ray 06/07/24 10:47 IMPRESSION: 1. No sign of bowel obstruction. 2. Stool distended distal colon and rectum. This finding would support a clinical diagnosis of constipation. Laboratory Results WBC 7.69 10^3/uL (3.29-11.43) 06/09/24 04:49 RBC 3.37 10^6/uL (3.85-5.65) L 06/09/24 04:49 Hgb 10.60 g/dL (11.27-16.99) L 06/09/24 04:49 Hct 34.2 % (36-47) L 06/09/24 04:49 MCV 101.5 fl (85-98) H 06/09/24 04:49 MCH 31.5 pg (27-33) 06/09/24 04:49 MCHC 31.0 g/dL (30-55) 06/09/24 04:49 RDW 15.4 % (12.1-15.1) H 06/09/24 04:49 Plt Count 94 10^3/cmm (157-399) L 06/09/24 04:49 MPV 11.8 fL (7.4-10.4) H 06/09/24 04:49 Neut % (Auto) 75.3 % 06/09/24 04:49 Lymph % (Auto) 12.0 % 06/09/24 04:49 [place] % (Auto) 8.2 % 06/09/24 04:49 Eos % (Auto) 2.6 % 06/09/24 04:49 Baso % (Auto) 0.3 % 06/09/24 04:49 Neut # (Auto) 5.80 10^3/uL (1.8-7.7) 06/09/24 04:49 Lymph # (Auto) 0.9 10^3/uL (0.8-4.8) 06/09/24 04:49 [place] # (Auto) 0.6 10^3/uL (0.2-0.9) 06/09/24 04:49 Eos # (Auto) 0.2 10^3/uL (0.0-0.8) 06/09/24 04:49 Baso # (Auto) 0.0 10^3/uL (0.0-0.1) 06/09/24 04:49 Nucleated RBC % (auto) 0 % 06/09/24 04:49 Nucleated RBCs # 0.0 /100WBC 06/09/24 04:49 D-Dimer 1.86 ug/mLFEU (0-0.59) H 06/05/24 21:12 Sodium 144 mmol/L (136-145) 06/09/24 04:49 Potassium 4.0 mmol/L (3.5-5.1) 06/09/24 04:49 Chloride 113 mmol/L (98-107) H 06/09/24 04:49 Carbon Dioxide 22 mmol/L (22-29) 06/09/24 04:49 Anion Gap 13.0 (5-19) 06/09/24 04:49 BUN 29 mg/dL (8-23) H 06/09/24 04:49 Creatinine 1.7 mg/dL (0.5-0.9) H 06/09/24 04:49 GFR Calculation Not Reportable 06/09/24 04:49 Glucose 87 mg/dL (65-115) 06/09/24 04:49 Estimat Average Glucose 105 06/06/24 00:36 Hemoglobin A1c 5.3 % (4.0-6.0) 06/06/24 00:36 Calculated Osmolality 303 mOsm/kg (285-295) H 06/09/24 04:49 Lactic Acid 2.7 mmol/L (0.5-2.2) H 06/05/24 21:12 Lactic Acid (Sepsis) 3.4 mmol/L (0.5-2.2) H 06/06/24 00:36 Calcium 7.5 mg/dL (8.5-10.5) L 06/09/24 04:49 Magnesium 2.0 mg/dL (1.7-2.3) 06/09/24 04:49 Total Bilirubin 0.8 mg/dL (0.15-1.2) 06/08/24 04:27 AST 32 U/L (0-32) 06/08/24 04:27 ALT 13 U/L (0-33) 06/08/24 04:27 Alkaline Phosphatase 124 U/L (35-105) H 06/08/24 04:27 Total Protein 4.7 g/dL (6.6-8.7) L 06/08/24 04:27 Albumin 2.2 g/dL (3.5-5.2) L 06/08/24 04:27 Globulin 2.5 g/dL (1.3-4.6) 06/08/24 04:27 Triglycerides 73 mg/dL (0-150) 06/05/24 21:12 Lipase 121 U/L (13-60) H 06/08/24 04:27 Urine Color Yellow (Yellow) 06/05/24 22:54 Urine Appearance Cloudy (CLEAR) A 06/05/24 22:54 Urine pH 6.0 (5-7) 06/05/24 22:54 Ur Specific [place] 1.018 (1.005-1.030) 06/05/24 22:54 Urine Protein 1+ (Negative) A 06/05/24 22:54 Urine Glucose (UA) Negative (Normal) 06/05/24 22:54 Urine Ketones Trace (Negative) 06/05/24 22:54 Urine Blood 2+ (Negative) A 06/05/24 22:54 Urine Nitrate Positive (Negative) A 06/05/24 22:54 Urine Bilirubin Negative (Negative) 06/05/24 22:54 Urine Urobilinogen 1.0 mg/dL (Negative) 06/05/24 22:54 Ur Leukocyte Esterase 2+ (Negative) A 06/05/24 22:54 Urine RBC 11-20 /hpf (0-2) H 06/05/24 22:54 Urine WBC Too numerous to cnt /hpf (0-5) H 06/05/24 22:54 Ur Squamous Epith Cells 0-5 /hpf (0-5) 06/05/24 22:54 Amorphous Sediment Not Reportable 06/05/24 22:54 Urine Bacteria 4+ /hpf (NONE) H 06/05/24 22:54 Hyaline Casts 21.48 /lpf 06/05/24 22:54 Vitals Last Vital Signs Temp 98.4 F 06/10/24 12:00 Pulse 104 H 06/10/24 12:00 Resp 15 06/10/24 12:00 BP 110/63 06/10/24 12:00 Pulse Ox 94 06/10/24 12:00 O2 Del Method Room Air 06/10/24 12:00 Discharge Plan Discharge Patient Disposition: Hospice - Medical Facility Condition: Stable Prescriptions: Continued bisacodyl [Dulcolax (bisacodyl)] 10 mg suppository [address] DAILY PRN (Reason: Constipation) levetiracetam 500 mg tablet 750 mg PO BID@09,18 quetiapine 50 mg tablet 50 mg PO BID acetaminophen [Tylenol] 325 mg Tablet 650 mg PO Q6H PRN (Reason: Pain) levothyroxine 25 mcg tablet 25 mcg PO DAILY@06 triamcinolone acetonide 0.1 % Cream 1 applic TOPICAL BID hydrocodone-acetaminophen 5-325 mg Tablet 1 tab PO Q8H PRN (Reason: Pain) magnesium hydroxide [Milk of Magnesia] 400 mg/5 mL Suspension 400 mg PO DAILY Fleet Enema 19-7 gram/118 mL Enema [address] DAILY Discontinued cyanocobalamin (vitamin B-12) 1,000 mcg capsule 1,000 mcg PO DAILY@09 aspirin 81 mg tablet,chewable 81 mg PO DAILY@09 furosemide 20 mg tablet 20 mg PO DAILY metoprolol tartrate 25 mg tablet 25 mg PO BID Discharge Orders: Discharge Order (Routine); Ordered 06/10/24 Ordered By: Sakshi Hernandez Referrals: Jeovanny Leo, [Primary Care Provider] - Discharge Diet: Usual diet Discharge Activity: Resume usual activity Patient Instructions: Aspiration, Aspiration Precautions (ED) Activity Restrictions/Additional Instructions: hospice. Discharge Attestations Time Spent in Discharge Care*: greater than 30 min Quality Metrics Clinical Quality Measures [ No reported AMI, CVA or VTE this stay] Coding Level of Care Code Acute Code for Chg Fwd Diagnoses Aspiration into airway T17.908A Encounter type: initial encounter Hypernatremia E87.0 Constipation K59.00 Oropharyngeal dysphagia R13.12 Acute kidney injury superimposed on chronic kidney disease N17.9; N18.9 Hyperkalemia E87.5 Aphasia R47.01 Unable to determine patient do not resuscitate (DNR) status Z78.9
[2024-06-10 13:41] LABS: SARS Covid-2 Antigen Negative (Negative)
--- NOTE | 2024-06-10 13:50 | PC.SLP ---
Patient was sleeping upon therapist arrival. Therapist woke the patient. Therapist asked the patient if she would like to participate in therapy several times and asked the patient several basic questions. Patient stared at therapist, smacked stomach and scratched head. Patient appeared confused. Patient attempted to verbalize an utterance but it was not intelligible. Feeding therapy not trialed due to patient confusion.
[2024-06-10] MEDS: levETIRAcetam 500 mg Tablet 750 MG PO (17:01)
[2024-06-10] MEDS: quetiapine 25 mg Tablet 50 MG PO (17:01)
== END 2024-06-10 17:40 | disposition hospice, home (50) | DRG 177 ==
LOC: ER 20:05 → MEDSURG 22:30
PROVIDERS: Internal Medicine; Admitting Provider Internal Medicine; Emergency Provider Emergency Medicine; PCP Family Medicine; Visit Provider Student in an Organized Health Care Education/Training Program
DX: J69.0 Pneumonitis due to inhalation of food and vomit (principal); K85.90 Acute pancreatitis without necrosis or infection, unspecified; E87.0 Hyperosmolality and hypernatremia; N17.9 Acute kidney failure, unspecified; R47.01 Aphasia; R65.10 Systemic inflammatory response syndrome (SIRS) of non-infectious origin without acute organ dysfunction; K59.00 Constipation, unspecified; R13.12 Dysphagia, oropharyngeal phase; N18.9 Chronic kidney disease, unspecified; E87.5 Hyperkalemia; F01.50 Vascular dementia, unspecified severity, without behavioral disturbance, psychotic disturbance, mood disturbance, and anxiety; G30.9 Alzheimer's disease, unspecified; F02.80 Dementia in other diseases classified elsewhere, unspecified severity, without behavioral disturbance, psychotic disturbance, mood disturbance, and anxiety; Z66 Do not resuscitate; Z85.3 Personal history of malignant neoplasm of breast; Z79.82 Long term (current) use of aspirin
CPT/HCPCS: 36415; 51702; 71045; 74018; 74019; 74176; 80048; 80053; 81001; 83036; 83605; 83690; 83735; 84478; 85025; 85378; 87040; 87077; 87086; 87186; 87426; 92507; 92523; 92526; 92610; 93005; 93970; 96365; 96372; 99285; J1644; J1956; J2470; J2543; J7030; J7070; J7120; J7121